=== PATIENT | male | born 1980 | race Caucasian/White ===

== ENCOUNTER 2018-02-07 18:58 | Inpatient (IN) ==
--- NOTE | 2018-02-07 19:39 | Emergency Department Note ---
Overdose HPI - General Chief Complaint: ED Overdose Stated Complaint: OD Time Seen by Provider: 02/07/18 19:08 Source: EMS Limitations: no limitations Nursing Notes Reviewed: Yes Vital Signs Reviewed: Yes - History of Present Illness HPI Narrative: Mr. Osorio, a 37yo male, presents from scene via EMS for suspected overdose of unknown substance. EMS reports decorticate position with myoclonic jerking on their arrival to scene. They administered 2 mg Narcan intranasal prior to beginning resuscitative efforts. At this time, patient began breathing but was otherwise nonresponsive to verbal commands. ROS is unobtainable secondary to patient's condition. - Related Data Allergies Allergy/AdvReac Type Severity Reaction Status Date / Time Unable to Assess Allergy Unverified 02/07/18 19:15 Review of Systems: As Per HPI Limitations: ROS unobtainable due to patients medical condition Past Medical History - Past Medical History Medical history: Reports: other - Social History Smoking Status: Current every day smoker Physical Exam Primary survey: Airway: Intact; patient spontaneous breathing with saturation 90%. Breathing: No chest wall tenderness. Bilateral breath sounds equal. Circulation: Bilateral radial, posterior tibial, pulses 2/4. No hemorrhaging. Disability: GCS 11 (E2, V4, M5). Exposure: No abrasions, lacerations, ecchymosis, or hematomas on the patient's scalp or face, trunk, extremities. Vital Signs Reviewed General: Is somnolent, eyes partly open. Head: atraumatic, normocephalic Eye: normal appearance, pupils pinpoint and equal, no scleral icterus, no conjunctival injection ENT: mucous membranes tacky, normal external ear exam Neck: normal inspection, trachea midline, full ROM Chest: normal inspection, symmetric chest rise Respiratory: Good respiratory effort. Bilateral breath sounds are clear without wheezing, crackles, or rhonchi. Cardiovascular: Regular rate and rhythm. No clicks, rubs, gallops, or murmors. Normal heart sounds. Abdomen: Abdomen flat. Bowel sounds present normoactive x-4 quadrants. Abdomen is soft, nondistended, and nontender. No organomegaly noted. Musculoskeletal: Spontaneously moving all extremities. Skin: warm, dry, intact. Extensive tattoos across his torso. Secondary survey Vital Signs Reviewed General: HEENT: No facial asymmetry. Head is normocephalic and atraumatic. Pupils pinpoint and equal. Nasal turbinates moist and pink. Oral mucosa tacky. Cardiovascular: Heart regular rate and rhythm without clicks, rubs, gallops, or murmurs. No JVD. PMI nondisplaced. Respiratory: Symmetric chest rise with good respiratory effort. Bilateral breath sounds are clear without wheezing, crackles, or rhonchi. Abdomen: Bowel sounds present normoactive x-4 quadrants. Abdomen is soft, nondistended, and nontender. No organomegaly noted. Musculoskeletal: Spontaneously moving all extremities. Full range of motion in upper and lower extremities. Neuro: Sensation light touch intact. Psych: Patient's affect is appropriate for situation. - General Limitations: no limitations General appearance: alert Course Course Narrative: Bedside glucose 107. Patient is spontaneously breathing of protecting his airway. Respirations at 10 with O2 saturation 90% on room air. He will open his eyes to loud voice and , with the addition of sternal rub, will occasionally answer simple questions. Patient does not know what he took. He does not know gave it to him. Patient believes that he has in [place]. Patient given 1 mg Narcan with no response. Patient another milligram Narcan with no response (total 2mg IV). Patient given another 2 mg Narcan with no response (total 4 mg IV). Anticipate admission. Suspect there is non-opioid component. Suspect benzodiazepines. Urine tox screen pending. Given EMSs report of myoclonic movement, patient on the ground, lack of witnesses at bedside, and patient's inability to provide story-external signs of trauma on physical exam the patient's head, will CT head to ensure no acute abnormalities. EKG dated 02/07/18 and 19:07 interpreted as sinus rhythm with a rate of 92. Intervals specifically normal QT/QTC at 329/379. Normal axis. Nonspecific ST- T changes. No previous EKG for comparison. Vital Signs Temperature 98.4 F 02/07/18 19:02 Pulse Rate 138 02/07/18 19:02 Respiratory Rate 12 02/07/18 19:02 Blood Pressure 142/96 02/07/18 19:02 O2 Sat by Pulse Oximetry 97 02/07/18 19:02 Temperature 98.4 F 02/07/18 19:02 Pulse Rate 86 02/07/18 19:40 Respiratory Rate 12 02/07/18 19:40 Blood Pressure 143/97 04/21/18 19:40 O2 Sat by Pulse Oximetry 98 02/07/18 19:44 Oxygen Delivery Oxygen Delivery Nasal Cannula Disposition Clinical Impression: Overdose Qualifiers: Encounter type: initial encounter Injury intent: undetermined intent Qualified Code(s): T50.904A - Poisoning by unspecified drugs, medicaments and biological substances, undetermined, initial encounter Disposition: Admitted As Inpatient Condition: Fair Forms: ED Satisfaction Letter
[2018-02-07] MEDS ORDERED: 0.9 % Sodium Chloride 1,000 ML IVC ONE (19:40)
--- NOTE | 2018-02-07 19:48 | Emergency Department Note ---
Disposition Clinical Impression: Overdose Qualifiers: Encounter type: initial encounter Injury intent: undetermined intent Qualified Code(s): T50.904A - Poisoning by unspecified drugs, medicaments and biological substances, undetermined, initial encounter Disposition: Admitted As Inpatient Forms: ED Satisfaction Letter General Adult HPI - General Chief complaint: ED Overdose Stated complaint: OD Time Seen by Provider: 02/07/18 19:08 Source: EMS Limitations: no limitations - History of Present Illness Pain Scale: 0 - Related Data Allergies Allergy/AdvReac Type Severity Reaction Status Date / Time Unable to Assess Allergy Unverified 02/07/18 19:15 Past Medical History - Past Medical History Medical history: Reports: other - Social History Smoking Status: Current every day smoker Physical Exam - General Limitations: no limitations General appearance: alert Course - Reevaluation(s) Reevaluation #1: Attestation note I examined this patient and my medical decision-making was reviewed with the emergency medicine resident. I agree with the documented findings, disposition and treatment plan as described except to the extent set forth below. Patient seen with emergency medicine resident Dr. Jacobo Roldan, Please see a copy of his note for details of the H&P, ED evaluation, management and disposition. I have independently evaluated the patient and confirmed appropriate portions of the history and physical exam. Briefly: 37-year-old male by EMS for overdose unresponsive. The patient was found on scene. Breathing got 2 mg of intranasal Narcan and woke up a little bit still very somnolent he received a total of 8 mg here at the [facility] emergency department he seems to have a problem with fixing gaze on his speech is limited to several words becomes somnolent but is arousable with sternal rub and loud voice. He is maintaining his airway and hemodynamically stable at this time . Unclear what substance and/or substances the patient has taken her dose for time. Patient's Accu-Chek is currently pending. Patient getting a catheter UA admission is anticipated. Providing 45 minutes critical care services this patient. EKG shows sinus rhythm without acute ischemic changes no QT prolongation. Admission disposition and ED workup in progress. Head CT pending as well Time: 19:45 Vital Signs Temperature 98.4 F 02/07/18 19:02 Pulse Rate 138 02/07/18 19:02 Respiratory Rate 12 02/07/18 19:02 Blood Pressure 142/96 02/07/18 19:02 O2 Sat by Pulse Oximetry 97 02/07/18 19:02 Temperature 98.4 F 02/07/18 19:02 Pulse Rate 86 02/07/18 19:40 Respiratory Rate 12 02/07/18 19:40 Blood Pressure 143/97 02/07/18 19:40 O2 Sat by Pulse Oximetry 98 02/07/18 19:44 Oxygen Delivery Oxygen Delivery Nasal Cannula
[2018-02-07 20:01] LABS: Bilirubin,Urine Negative (Negative); Blood,Urine Negative (Negative); Clarity,Urine Clear (Clear); Color,Urine Yellow (Yellow); Glucose,Urine (UA) Normal (Normal); Ketones,Urine Negative (Negative); Leukocyte Esterase,Urine Negative (Negative); Nitrite,Urine Negative (Negative); PH,Urine 7.5 pH Units (5.0-8.0); Protein,Urine Negative (Neg-Trace); Specific Gravity,Urine 1.014 (1.010-1.025); Urobilinogen,Urine Normal (Normal)
[2018-02-07 20:06] LABS: Basophils % 0.3 %; Eosinophils # 0.1 K/mcL (0.0-0.6); Eosinophils % 1.3 %; Hematocrit 43.6 % (37.5-50.1); Hemoglobin 15.7 g/dL (12.9-16.9); Immature Granulocytes % 0.3 % (0-4); Lymphocytes # 2.6 K/mcL (0.6-4.6); Lymphocytes % 24.8 %; Mean Corpuscular Hemoglobin 31.7 pg (28.0-33.3); Mean Corpuscular Volume 87.9 fL (83.0-100.0); Mean Platelet Volume 9.5 fL (9.4-12.4); Monocytes # 1.4 K/mcL (0.0-1.3); Monocytes % 12.9 %; Neutrophils # 6.3 K/mcL (1.6-8.9); Platelet Count 206 K/mcL (140-400); Red Blood Count 4.96 M/mcL (4.19-5.50); Red Cell Distribution Width 12.6 % (11.5-14.5); Segmented Neutrophils % 60.4 %
[2018-02-07 20:11] LABS: Amphetamine Screen,Urine Positive ng/mL (Cutoff=1000); Barbiturate Screen,Urine Negative ng/mL (Cutoff=200); Benzodiazepines Screen,Urine Negative ng/mL (Cutoff=200); Cannabinoid Screen,Urine Negative ng/mL (Cutoff = 50); Cocaine Screen,Urine Negative ng/mL (Cutoff= 300); Opiate Screen,Urine Negative ng/mL (Cutoff=300); Phencyclidine Screen,Urine Negative ng/mL (Cutoff=25)
[2018-02-07 20:30] LABS: Acetaminophen < 10 mcg/mL (10-20); Alanine Aminotransferase 73 Units/L (7-52); Albumin 4.2 g/dL (3.5-5.7); Albumin/Globulin Ratio 1.6 (1.1-2.2); Alkaline Phosphatase 59 Units/L (34-104); Aspartate Amino Transferase 140 Units/L (13-39); BUN/Creatinine Ratio 10 (6-26); Bilirubin,Direct 0.2 mg/dL (0.0-0.2); Bilirubin,Indirect 0.6 mg/dL (0.0-1.2); Bilirubin,Total 0.8 mg/dL (0.3-1.0); Blood Urea Nitrogen 10 mg/dL (6-20); Calcium 9.5 mg/dL (8.6-10.3); Carbon Dioxide 28 mEq/L (23-29); Chloride 103 mEq/L (98-107); Ethanol < 10 mg/dL (Less than 10); Globulin 2.7 g/dL (2.4-3.5); Glucose 113 mg/dL (70-105); Osmolality,Calculated 286 (280-300); Potassium 3.6 mEq/L (3.5-5.1); Salicylate < 2.5 mg/dL (15.0-30.0); Sodium 138 mEq/L (136-145); Total Protein 6.9 g/dL (6.4-8.9); eGFR For African Americans > 60 (> 60); eGFR For Non-African Americans > 60 (> 60)
[2018-02-07] MEDS ORDERED: *HR* LORazepam 2 MG/ML VIAL IVP ONE (21:12)
[2018-02-07] MEDS ORDERED: Naloxone 0.4 MG/ML INJ IVP PRN (21:49)
--- NOTE | 2018-02-07 21:53 | Internal Med History&Physical ---
Date of Encounter: 02/07/18 Time of Encounter: 21:54 Assessment and Plan (1) Toxic encephalopathy Current visit: Yes Status: Acute Presented to the emergency department 02/07/18 with encephalopathy felt secondary to drug ingestion. Suspect encephalopathy secondary to drug ingestion. Afebrile, normal white count, low concern for infectious etiology. Head CT 02/07/18 without acute findings. Received total 6 mg Narcan(2 intranasal, 4 IV) with improvement in neurologic status. Required IV Ativan prior to admission. GCS 14 at time of evaluation. Maintaining airway in no distress. Suspect encephalopathy secondary to drug ingestion. Afebrile, normal white count, low concern for infectious etiology. Narcan PRN Ativan 2 mg Q2H PRN for agitation. Continued monitoring in the ICU. PINK SLIPPED: CANNOT LEAVE AMA (2) Drug abuse Current visit: Yes Status: Acute Urine drug screen positive for amphetamines. Report is that the patient took Flakka this evening. Social service consult for drug abuse. Continue plan as outlined under encephalopathy. (3) Transaminitis Current visit: Yes Status: Acute AST 140, ALT 73. Alkaline phosphatase, bilirubin within normal limits. Hepatitis panel ordered. Repeat in AM Internal Medicine - H&P: HPI Chief complaint: Drug overdose Admitted From: Emergency Dept Plans for Post Hospital Care: Home History of present illness: Mr. Osorio is a 37 year old male with an unknown past medical history who presented to the emergency department on 02/07/18 via EMS due to concern for drug overdose. History is obtained from documentation as the patient is unable to provide a lucid description as to why he is here. As per report EMS found the patient unresponsive with myoclonic jerking. He was given 2 mg of intranasal Narcan with resolution of his apnea however he remained somnolent. Initial presentation in the emergency department showed a GCS of 11 with continued somnolence. He received an additional 4 mg of IV Narcan with a moderate response. His emergency department workup reveals a negative head CT. Labs show no acute derangements with the exception of a mild transaminitis. Urine drug screen was positive for amphetamines. There is suspicion that the patient took Flakka this evening at an unknown time. He was agitated in the emergency department receiving one-time dose of IV Ativan. Patient seen and evaluated at bedside in the emergency Department bed 5. He is alert and oriented 1 to self only. GCS 14. He is unable to provide an accurate history as to what preceded his arrival this evening. He follows commands on exam. He intermittently answers questions appropriately, unsure if this is agitation/waxing and waning/encephalopathy or malingering. When asked if he did this in an attempt to harm himself he was evasive and avoided eye contact and refused to answer the question. Given this finding the patient was pink slipped until he is more lucid to give an account as to why he overdosed. He denies ingesting or injecting any drugs this evening. She requires frequent redirection. Given his encephalopathy he is better served in the intensive care unit for close neurologic and hemodynamic monitoring at this time. Past Med Surg Social Fam HX - Past Medical History Attestation: Yes The following information was validated with the patient. Source: patient Medical history: no medical history, other - Past Surgical History Surgical History: non-contributory - Social History Smoking Status: Current every day smoker Internal Medicine - H&P: Meds 3 Allergy/AdvReac Type Severity Reaction Status Date / Time Penicillins [PCN] Allergy Hives Verified 02/07/18 22:28 ROS unobtainable: due to mental status All Systems PM: A 10-system review of systems was performed and is negative for pertinent findings except as documented above in the HPI. - Constitutional Vitals: Temp Pulse Resp BP Pulse Ox 98.4 F 80 16 151/104 99 02/07/18 19:02 02/07/18 20:38 02/07/18 20:38 02/07/18 20:38 02/07/18 20:38 General appearance: Present: A&O X 1, no acute distress, answers questions appropriately (Intermittently) - Head Head exam: Present: atraumatic, normal inspection, normocephalic - Eye Eye exam: Present: normal appearance, PERRL. Absent: conjunctival injection - ENT ENT exam: Present: mucous membranes moist, normal exam - Neck Neck exam general surgery: Present: full ROM, normal inspection - Respiratory Respiratory exam: Present: CTAB. Absent: prolonged expiratory phase, respiratory distress, wheezes, tachypnea - Cardiovascular Cardiovascular exam: Present: RRR, +S1, +S2 - GI/Abdominal GI/Abdominal exam: Present: soft. Absent: distended, tenderness - Extremities Exam Extremities exam: Present: normal inspection - Neurological Exam Additional comments: Alert and oriented 1 to self. Intermittently answers questions appropriately however he requires frequent redirection with confabulations at times. He moves all extremities equally and follows commands. GCS 14. - Psychiatric Psychiatric exam: Present: agitated, anxious - Skin Skin exam: Present: dry, intact Internal Med - H&P Results - Labs CBC & Chem 7: 02/07/18 19:57 02/07/18 19:57 Labs: Short CBC 02/07/18 Range/Units 19:57 WBC 10.5 (4.3-11.1) K/mcL Hgb 15.7 (12.9-16.9) g/dL Hct 43.6 (37.5-50.1) % Plt Count 206 (140-400) K/mcL Neutrophils # 6.3 (1.6-8.9) K/mcL BMP 02/07/18 19:57 Sodium 138 Potassium 3.6 Chloride 103 Carbon Dioxide 28 BUN 10 Creatinine 0.99 Glucose 113 H Calcium 9.5 Liver Function 02/07/18 Range/Units 19:57 Total Bilirubin 0.8 (0.3-1.0) mg/dL Direct Bilirubin 0.2 (0.0-0.2) mg/dL AST 140 H (13-39) Units/L ALT 73 H (7-52) Units/L Alkaline Phosphatase 59 (34-104) Units/L Albumin 4.2 (3.5-5.7) g/dL Urine 02/07/18 Range/Units 19:52 Urine Color Yellow (Yellow) Urine Clarity Clear (Clear) Urine pH 7.5 (5.0-8.0) pH Units Ur Specific Nixon 1.014 (1.010-1.025) Urine Protein Negative (Neg-Trace) mg/dL Urine Glucose (UA) Normal (Normal) mg/dL - EKG Data -: EKG Interpreted by Myself (Sinus rhythm, normal axis, normal intervals, no ST -T wave changes.) - Impressions ITS Impressions Head CT 02/07/18 19:40 IMPRESSION: No acute intracranial abnormality. D/ / Barrie Urrutia MD / Barrie Urrutia MD Interpreting Provider: Barrie Urrutia MD
[2018-02-07] MEDS: 0.9 % Sodium Chloride 1,000 ML IVC SCH (23:43)
[2018-02-08 01:02] LABS: Hepatitis B Surface Antigen Nonreactive (Nonreactive)
[2018-02-08] MEDS: *HR* LORazepam 2 MG/ML VIAL IVP PRN ×2 (01:33→20:44)
[2018-02-08] MEDS: 0.9 % Sodium Chloride 1,000 ML IVC SCH ×2 (08:53→17:51)
[2018-02-08 09:41] LABS: Basophils % 0.5 %; Eosinophils # 0.2 K/mcL (0.0-0.6); Eosinophils % 1.7 %; Hematocrit 44.6 % (37.5-50.1); Hemoglobin 15.1 g/dL (12.9-16.9); Immature Granulocytes % 0.2 % (0-4); Lymphocytes # 1.7 K/mcL (0.6-4.6); Lymphocytes % 19.3 %; Mean Corpuscular HGB Conc 33.9 g/dL (31.6-35.5); Mean Corpuscular Hemoglobin 30.5 pg (28.0-33.3); Mean Corpuscular Volume 90.1 fL (83.0-100.0); Mean Platelet Volume 9.4 fL (9.4-12.4); Monocytes # 1.3 K/mcL (0.0-1.3); Neutrophils # 5.6 K/mcL (1.6-8.9); Platelet Count 159 K/mcL (140-400); Red Blood Count 4.95 M/mcL (4.19-5.50); Red Cell Distribution Width 12.7 % (11.5-14.5); Segmented Neutrophils % 63.3 %
[2018-02-08 09:54] LABS: Albumin 3.9 g/dL (3.5-5.7); Albumin/Globulin Ratio 1.5 (1.1-2.2); Bilirubin,Direct 0.3 mg/dL (0.0-0.2); Bilirubin,Indirect 0.9 mg/dL (0.0-1.2); Bilirubin,Total 1.2 mg/dL (0.3-1.0); Globulin 2.6 g/dL (2.4-3.5); Total Protein 6.5 g/dL (6.4-8.9)
[2018-02-08 09:55] LABS: BUN/Creatinine Ratio 12 (6-26); Blood Urea Nitrogen 10 mg/dL (6-20); Carbon Dioxide 25 mEq/L (23-29); Chloride 107 mEq/L (98-107); Glucose 82 mg/dL (70-105); Magnesium 2.1 mg/dL (1.6-2.6); Osmolality,Calculated 286 (280-300); Potassium 4.1 mEq/L (3.5-5.1); Sodium 139 mEq/L (136-145); eGFR For African Americans > 60 (> 60); eGFR For Non-African Americans > 60 (> 60)
[2018-02-08] MEDS: Acetaminophen 325 MG TABLET PO PRN (11:08)
[2018-02-08] MEDS: cloNIDine HCl 0.1 MG TABLET PO PRN (12:39)
--- NOTE | 2018-02-08 16:30 | Internal Med Progress Note ---
Date of Encounter: 02/08/18 Time of Encounter: 08:35 - Assessment and plan (1) Toxic encephalopathy Current Visit: Yes Status: Acute Assessment and plan: Patient was brought in by EMS after being found altered and drowsy on the streets. Urine drug screen was positive for amphetamines. Patient is somewhat awake, however refuses to answer/answer appropriately, declines oral intake. Continue IV hydration, telemetry monitoring, supportive care with PRN IV Ativan; (2) Suicidal ideation Current Visit: Yes Status: Acute Assessment and plan: Patient reportedly was silent when asked about intentional drug overdose in the emergency room. Unable to assess if it is true suicidal ideation. Psychiatric consult requested. Continue one-on-one sitter for patient safety. (3) Drug abuse Current Visit: Yes Status: Acute Assessment and plan: Reports use of amphetamines. Patient also has a tracking device on his ankle, he is from [facility]. Continue when necessary IV Ativan and when necessary by mouth clonidine for tachycardia. - Time Spent With Patient Total time spent is greater than 50% in coordination of care (as documented) at patient's floor/unit and/or counseling patient: - Subjective Interval history: Refuses to answer; does not answer appropriately at this time; not in distress; no fever/chills, chest pain, dyspnea; - Constitutional Vitals: Temp Pulse Resp BP Pulse Ox 98.7 F 109 16 123/80 99 02/08/18 12:22 02/08/18 12:22 02/08/18 12:22 02/08/18 12:22 02/08/18 12:22 General appearance: Present: A&O X 1, answers questions appropriately ( Intermittently, don't know how reliable he is) - Respiratory Respiratory exam: Present: CTAB. Absent: accessory muscle use, rales, rhonchi, wheezes - Cardiovascular Cardiovascular exam: Present: RRR, +S1, +S2. Absent: diastolic murmur, gallop, rubs, systolic murmur - GI/Abdominal GI/Abdominal exam: Present: normal bowel sounds, soft, no peritoneal signs. Absent: distended, tenderness - Extremities Exam Extremities exam: Present: warm, radial pulses palpable and symmetrical. Absent : calf tenderness, cyanotic, pedal edema - Neurological Exam Neurological exam: Present: CN II-XII intact, oriented X3, no focal deficits. Absent: pronater drift, facial droop, speech deficit Internal Medicine: Result - Labs CBC & Chem 7: 02/08/18 09:23 02/08/18 09:23 Labs: Short CBC 02/08/18 Range/Units 09:23 WBC 8.8 (4.3-11.1) K/mcL Hgb 15.1 (12.9-16.9) g/dL Hct 44.6 (37.5-50.1) % Plt Count 159 (140-400) K/mcL Neutrophils # 5.6 (1.6-8.9) K/mcL BMP 02/08/18 09:23 Sodium 139 Potassium 4.1 Chloride 107 Carbon Dioxide 25 BUN 10 Creatinine 0.85 Glucose 82 Calcium 9.0 Liver Function 02/08/18 Range/Units 09:23 Total Bilirubin 1.2 H (0.3-1.0) mg/dL Direct Bilirubin 0.3 H (0.0-0.2) mg/dL AST 123 H (13-39) Units/L ALT 70 H (7-52) Units/L Alkaline Phosphatase 55 (34-104) Units/L Albumin 3.9 (3.5-5.7) g/dL Consult Discharge Plan - Plan Referrals: NONE,PCP [Primary Care Provider] -
--- NOTE | 2018-02-08 16:36 | Consult Note ---
Date of Encounter: 02/08/18 Time of Encounter: 16:30 Assessment & Recommendation (1) Overdose Current visit: Yes Status: Acute Qualifiers: Encounter type: initial encounter Injury intent: undetermined intent Qualified Code(s): T50.904A - Poisoning by unspecified drugs, medicaments and biological substances, undetermined, initial encounter (2) Toxic encephalopathy Current visit: Yes Status: Acute (3) Drug abuse Current visit: Yes Status: Acute History of Present Illness Requesting Physician: Leslie Lester MD Reason for consult: Amphetamine OD and Suicidal ideation History of present illness: Mr. Osorio is a 37 year old male, single, lives in a half way house at [place], on parole with unclear psych hx,BIBEMS to the ED due to concern for drug overdose. Psychiatry consulted for SI and Amphetamine OD Patient was seen at bedside in the presence of his one on one. He appeared sedated and was drifting in and out of sleep and complained of feeling SOB. He is unable to recall the incident leading to his hospitalization but reported he think he might have had a heart attack. He mentioned he is currently on parole and was living in a house way house. He was [facility] from [facility] 11/06 after 5years incarceration for burglary. He reported being medicated with Thorazine and lithium during his incarceration and is currently on either Prozac or Sertraline of unknown dose. Patient admitted to using Flakka before his hospitalization. Denied symptoms of depression or any intent to harm himself. He also denied AH/VH/HI MSE significant for drowsiness but linear and logical thought process Utox: Positive for Amphetamine Recommendation: Continue one to one for safety Continue to manage on the medical floor Psychiatry to follow up tomorrow before discharge Thanks for the consult CC: Leslie Lester MD Past Med Surg Social Fam HX - Past Medical History Medical history: no medical history, other - Past Psychiatric History Psychiatric history: Reports: depression, other - Past Surgical History Surgical History: non-contributory - Social History Smoking Status: Current every day smoker Smokeless Tobacco Status: No Alcohol use: none Drug use: cocaine Medications & Allergies No Known Home Drugs 02/08/18 [History] 3 Allergy/AdvReac Type Severity Reaction Status Date / Time Penicillins [PCN] Allergy Hives Verified 02/07/18 22:28 Review of Systems Constitutional: Denies: fever, chills, weakness, weight change Eyes: Denies: eye pain, vision change Ears, Nose, Throat: Denies: ear pain, throat pain, dental pain, hearing loss, congestion Cardiovascular: Denies: chest pain, palpitations, dyspnea on exertion Respiratory: Denies: cough, dyspnea, wheezes Gastrointestinal: Denies: abdominal pain, nausea, vomiting, diarrhea, constipation Genitourinary male: Denies: urgency, dysuria, frequency, genital lesions Musculoskeletal: Denies: joint swelling, joint pain Integumentary: Denies: rash, lesions, pruritus Neurological: Denies: headache, weakness, numbness, memory loss Endocrine: Denies: fatigue, heat or cold intolerance Hematologic/Lymphatic: Denies: easy bruising, lymphadenopathy Allergic/Immunologic: Denies: urticaria, itchy eyes Psychiatry Exam - Constitutional Vitals: Temp Pulse Resp BP Pulse Ox 98.7 F 109 16 123/80 99 02/08/18 12:22 02/08/18 12:22 02/08/18 12:22 02/08/18 12:22 02/08/18 12:22 General appearance: age & developmentally appropriate - Musculoskeletal Strength & Tone: other - Psychiatric Patient Orientation: Yes Person, Yes Circumstance Level of alertness: Sedated Behavior: calm, cooperative Psychomotor activity: Slowed Eye Contact: Maintains Eye Contact Mood Description: Euthymic/stable Affect description: congruent with mood Speech Volume: Normal Speech pattern: normal rate, normal rhythm, normal tone Language & Vocabulary: consistent with education Thought Process: Logical, Linear Thought Content: No Suicidal ideation, No Homicidal ideation, No Overt delusions Perceptual Disturbances: No Auditory hallucinations, No Visual hallucinations Attention Span Ability: Unable to Sustain Attention Memory Description: Grossly Intact Patient Reliability: Questionable Historian Fund of knowledge: Yes average Intelligence Estimate: Average Judgment: Poor Insight: None Results - Labs Labs: Laboratory Last Values WBC 8.8 K/mcL (4.3-11.1) 02/08/18 09:23 RBC 4.95 M/mcL (4.19-5.50) 02/08/18 09:23 Hgb 15.1 g/dL (12.9-16.9) 02/08/18 09:23 Hct 44.6 % (37.5-50.1) 02/08/18 09:23 MCV 90.1 fL (83.0-100.0) 02/08/18 09: MCH 30.5 pg (28.0-33.3) 02/08/18: MCHC 33.9 g/dL (31.6-35.5) 02/08/18 09: RDW 12.7 % (11.5-14.5) 02/08/18 09: Plt Count 159 K/mcL (140-400) 02/08/18: MPV 9.4 fL (9.4-12.4) 02/08/18 09: Immature Gran % 0.2 % (0-4) 02/08/18: Seg Neutrophils % 63.3 % 02/08/18: Lymphocytes % 19.3 % 02/08/18: Monocytes % 15.0 % 02/08/18: Eosinophils % 1.7 % 02/08/18: Basophils % 0.5 % 02/08/18: Neutrophils # 5.6 K/mcL (1.6-8.9) 02/08/18 09: Lymphocytes # 1.7 K/mcL (0.6-4.6) 02/08/18 09: Monocytes # 1.3 K/mcL (0.0-1.3) 02/08/18: Eosinophils # 0.2 K/mcL (0.0-0.6) 02/08/18: Basophils # 0.0 K/mcL (0.0-0.2) 02/08/18: Sodium 139 mEq/L (136-145) 02/08/18: Potassium 4.1 mEq/L (3.5-5.1) 02/08/18: Chloride 107 mEq/L (98-107) 02/08/18: Carbon Dioxide 25 mEq/L (23-29) 02/08/18: BUN 10 mg/dL (6-20) 02/08/18: Creatinine 0.85 mg/dL (0.70-1.30) 02/08/18 09: Est GFR ( Amer) > 60 (> 60) 02/08/18: Est GFR (Non-Af Amer) > 60 (> 60) 04/22/18 09:23 BUN/Creatinine Ratio 12 (6-26) 02/08/18 09:23 Glucose 82 mg/dL (70-105) 02/08/18 09:23 POC Glucose 104 mg/dL (70-99) H 02/07/18 22:55 Calculated Osmolality 286 (280-300) 02/08/18 09:23 Lactic Acid 1.4 mmol/L (0.5-2.2) 02/07/18 19:57 Calcium 9.0 mg/dL (8.6-10.3) 02/08/18 09:23 Magnesium 2.1 mg/dL (1.6-2.6) 02/08/18 09:23 Total Bilirubin 1.2 mg/dL (0.3-1.0) H 02/08/18 09:23 Direct Bilirubin 0.3 mg/dL (0.0-0.2) H 02/08/18 09:23 Indirect Bilirubin 0.9 mg/dL (0.0-1.2) 02/08/18 09:23 AST 123 Units/L (13-39) H 02/08/18 09:23 ALT 70 Units/L (7-52) H 02/08/18 09:23 Alkaline Phosphatase 55 Units/L (34-104) 02/08/18 09:23 Serum Total Protein 6.5 g/dL (6.4-8.9) 02/08/18 09:23 Albumin 3.9 g/dL (3.5-5.7) 02/08/18 09:23 Globulin 2.6 g/dL (2.4-3.5) 02/08/18 09:23 Albumin/Globulin Ratio 1.5 (1.1-2.2) 02/08/18 09:23 Urine Color Yellow (Yellow) 02/07/18 19:52 Urine Clarity Clear (Clear) 02/07/18 19:52 Urine pH 7.5 pH Units (5.0-8.0) 02/07/18 19:52 Ur Specific [place] 1.014 (1.010-1.025) 02/07/18 19:52 Urine Protein Negative mg/dL (Neg-Trace) 02/07/18 19:52 Urine Glucose (UA) Normal mg/dL (Normal) 02/07/18 19:52 Urine Ketones Negative mg/dL (Negative) 02/07/18 19:52 Urine Blood Negative (Negative) 02/07/18 19:52 Urine Nitrite Negative (Negative) 02/07/18 19:52 Urine Bilirubin Negative (Negative) 02/07/18 19:52 Urine Urobilinogen Normal mg/dL (Normal) 02/07/18 19:52 Ur Leukocyte Esterase Negative (Negative) 02/07/18 19:52 Salicylates < 2.5 mg/dL (15.0-30.0) L 02/07/18 19:57 Urine Opiates Screen Negative ng/mL (Adrazj=393) 02/07/18 19:52 Acetaminophen < 10 mcg/mL (10-20) L 02/07/18 19:57 Ur Barbiturates Screen Negative ng/mL (Sfqkvx=946) 02/07/18 19:52 Ur Phencyclidine Scrn Negative ng/mL (Cutoff=25) 02/07/18 19:52 Ur Amphetamines Screen Positive ng/mL (Ymeatz=4533) H 02/07/18 19:52 U Benzodiazepines Scrn Negative ng/mL (Jzaelv=585) 02/07/18 19:52 Urine Cocaine Screen Negative ng/mL (Cutoff= 300) 02/07/18 19:52 U Marijuana (THC) Screen Negative ng/mL (Cutoff = 50) 02/07/18 19:52 Ethyl Alcohol < 10 mg/dL (Less than 10) 02/07/18 19:57 Hep Bs Antigen Nonreactive (Nonreactive) 02/07/18 23:11 Consult Discharge Plan - Plan Referrals: NONE,PCP [Primary Care Provider] -
[2018-02-08] MEDS ORDERED: Nicotine 14 MG PATCH.TD24 TD SCH (22:15)
[2018-02-09] MEDS: *HR* LORazepam 2 MG/ML VIAL IVP PRN ×2 (00:01→22:37)
[2018-02-09] MEDS: Acetaminophen 325 MG TABLET PO PRN ×4 (00:01→22:33)
[2018-02-09 01:15] LABS: Hepatitis A Antibody IgM Nonreactive (Nonreactive); Hepatitis B Core IgM Nonreactive (Nonreactive)
[2018-02-09] MEDS: 0.9 % Sodium Chloride 1,000 ML IVC SCH ×3 (02:56→23:00)
[2018-02-09 04:30] LABS: Hepatitis C Virus Antibody Reactive (Nonreactive)
[2018-02-09] MEDS: Nicotine 21 MG PATCH.TD24 TD SCH ×2 (06:16→08:22)
--- NOTE | 2018-02-09 16:44 | Internal Med Progress Note ---
Date of Encounter: 02/09/18 Time of Encounter: 13:30 - Assessment and plan (1) Toxic encephalopathy Current Visit: Yes Status: Acute Assessment and plan: Encephalopathy seems to be improving, however not at baseline mental status. Unclear if patient is deliberately not providing appropriate history. Continue IV hydration, telemetry monitoring, supportive care with PRN IV Ativan ; (2) Suicidal ideation Current Visit: Yes Status: Acute Assessment and plan: Patient reportedly was silent when asked about intentional drug overdose in the emergency room. Psychiatric consult appreciated, recommended continuing one-on-one sitter for patient safety and medical management. Psychiatry to reassess today. (3) Drug abuse Current Visit: Yes Status: Acute Assessment and plan: Reports use of amphetamines. Patient also has a tracking device on his ankle, he is from [facility]. However, he reports that he is from [place], cannot provide information about how or why he is here. Continue when necessary IV Ativan, will decrease frequency as patient is noted to be dependent on this, continue when necessary by mouth clonidine for tachycardia. Consult social service coordinator. - Time Spent With Patient Total time spent is greater than 50% in coordination of care (as documented) at patient's floor/unit and/or counseling patient: - Subjective Interval history: Reports feeling depressed, inability to restore fall asleep. Reported sharp stabbing central chest pain earlier. No nausea, vomiting, shortness of breath. Patient initially did not answer appropriately. After having been told that he cannot get appropriate treatment unless he cooperates with history, he reported that he knew he was at that [facility] and he thinks is here because he had a heart attack. - Constitutional Vitals: Temp Pulse Resp BP Pulse Ox 97.3 F L 118 16 123/78 98 02/09/18 11:09 02/09/18 11:09 02/09/18 11:09 02/09/18 11:09 02/09/18 11:09 General appearance: Present: A&O X 2. Absent: answers questions appropriately - Respiratory Respiratory exam: Present: CTAB. Absent: accessory muscle use, rales, rhonchi, wheezes - Cardiovascular Cardiovascular exam: Present: RRR, +S1, +S2, tachycardia. Absent: diastolic murmur, gallop, rubs, systolic murmur - GI/Abdominal GI/Abdominal exam: Present: normal bowel sounds, soft, no peritoneal signs. Absent: distended, tenderness - Extremities Exam Extremities exam: Present: full ROM, warm, radial pulses palpable and symmetrical. Absent: calf tenderness, cyanotic, pedal edema Internal Medicine: Result - Labs CBC & Chem 7: 02/08/18 09:23 02/08/18 09:23 Labs: Cardiac Enzymes 02/09/18 Range/Units 11:35 Troponin I < 0.03 (< 0.04) ng/mL Consult Discharge Plan - Plan Referrals: NONE,PCP [Primary Care Provider] -
--- NOTE | 2018-02-09 17:08 | Electrocardiograph Report ---
[address] [place], [place] [address] Test Date: 2018-02-09 Pat Name: Julio César Osorio Department: 113 Room: 3B Gender: M Misdraw Hand: : 1980 Requested By: Maryam Lester Order Number: [id number] Reading MD: Rhonda Velásquez Measurements Intervals [place] Rate: 106 P: 68 MD: 163 QRS: 72 QRSD: 97 T: 55 QT: 321 QTc: 383 Interpretive Statements SINUS TACHYCARDIA POSSIBLE RIGHT VENTRICULAR CONDUCTION DELAY ABNORMAL RHYTHM ECG Electronically Signed On 02-09-2018 17:07:23 EDT by Rhonda Velásquez
--- NOTE | 2018-02-10 05:52 | Electrocardiograph Report ---
[address] [address] Test Date: 2018-02-07 Pat Name: Julio Césra Osorio Department: 103 Room: [facility] Gender: M Regulatory Compliance Officer: LRS : 1980 Requested By: Jacobo Roldan Order Number: [id number] Reading MD: Edmar Gutierrez Measurements Intervals [place] Rate: 92 P: 57 HI: 136 QRS: 77 QRSD: 105 T: 42 QT: 329 QTc: 379 Interpretive Statements SINUS RHYTHM Electronically Signed On 02-10-2018 5:51:11 EDT by Edmar Gutierrez
[2018-02-10] MEDS: 0.9 % Sodium Chloride 1,000 ML IVC SCH ×2 (09:11→19:55)
[2018-02-10] MEDS: Nicotine 21 MG PATCH.TD24 TD SCH (11:02)
[2018-02-10] MEDS: Acetaminophen 325 MG TABLET PO PRN ×2 (11:06→19:50)
[2018-02-10] MEDS: *HR* LORazepam 2 MG/ML VIAL IVP PRN ×2 (11:11→19:51)
--- NOTE | 2018-02-10 14:04 | Consult Note ---
Date of Encounter: 02/10/18 Time of Encounter: 12:49 Assessment & Recommendation (1) Overdose Current visit: Yes Status: Acute Assessment & Recommendation: continue one to one for safety. once not sedated will reevaluate Qualifiers: Encounter type: initial encounter Injury intent: undetermined intent Qualified Code(s): T50.904A - Poisoning by unspecified drugs, medicaments and biological substances, undetermined, initial encounter (2) Drug abuse Current visit: Yes Status: Acute History of Present Illness Patient: known to practice within the last 3 years Requesting Physician: Leslie Lester MD Reason for consult: overdose History of present illness: Mr. Osorio is a 37 year old male consulted today for amphetamine OD and suicidal ideation. he was seen by psych on 02/08/18. today following up , patient seen at bedside,he is sedated and was unable to give history , he was drifting in and out of sleep. he said he is here because he had heart attack. he was not oriented , states at [facility] , its friday and agreed to be depress , he has h/o OD in past. patient had not eaten his breakfast or lunch. will go back this AFTERNOON TO SEE IF HE IS ALERT AND ABLE TO GIVE HISTORY. MSE unable to complete secondary to drowsiness . Recmmedation. Continue sitter will follow up . Thank you for the consult CC: Leslie Lester MD Past Med Surg Social Fam HX - Past Medical History Medical history: no medical history, other - Past Psychiatric History Psychiatric history: Reports: depression, prior suicide attempt Family psychiatric history: Unknown Family History of Suicide: Unknown - Past Surgical History Surgical History: non-contributory - Social History Smoking Status: Current every day smoker Smokeless Tobacco Status: No Alcohol use: none Drug use: cocaine Medications & Allergies No Known Home Drugs 02/08/18 [History] 3 Allergy/AdvReac Type Severity Reaction Status Date / Time Penicillins [PCN] Allergy Hives Verified 02/07/18 22:28 Review of Systems Psychiatric: Reports: depression, suicidal ideation Psychiatry Exam - Constitutional Vitals: Temp Pulse Resp BP Pulse Ox 98.2 F 90 16 110/66 97 02/10/18 13:30 02/10/18 13:30 02/10/18 13:30 02/10/18 13:30 02/10/18 13:30 General appearance: age & developmentally appropriate - Psychiatric Level of alertness: Sedated Attention Span Ability: Unable to Focus, Unable to Sustain Attention Results - Labs Labs: Laboratory Last Values WBC 8.8 K/mcL (4.3-11.1) 02/08/18 09: RBC 4.95 M/mcL (4.19-5.50) 02/08/18 09:23 Hgb 15.1 g/dL (12.9-16.9) 02/08/18 09: Hct 44.6 % (37.5-50.1) 02/08/18 09: MCV 90.1 fL (83.0-100.0) 02/08/18 09: MCH 30.5 pg (28.0-33.3) 02/08/18: MCHC 33.9 g/dL (31.6-35.5) 02/08/18 09: RDW 12.7 % (11.5-14.5) 02/08/18 09: Plt Count 159 K/mcL (140-400) 02/08/18 09:23 MPV 9.4 fL (9.4-12.4) 02/08/18 09: Immature Gran % 0.2 % (0-4) 02/08/18: Seg Neutrophils % 63.3 % 02/08/18 09:23 Lymphocytes % 19.3 % 02/08/18 09:23 Monocytes % 15.0 % 02/08/18 09: Eosinophils % 1.7 % 02/08/18: Basophils % 0.5 % 02/08/18:23 Neutrophils # 5.6 K/mcL (1.6-8.9) 02/08/18 09: Lymphocytes # 1.7 K/mcL (0.6-4.6) 02/08/18: Monocytes # 1.3 K/mcL (0.0-1.3) 02/08/18 09: Eosinophils # 0.2 K/mcL (0.0-0.6) 02/08/18 09: Basophils # 0.0 K/mcL (0.0-0.2) 02/08/18 09: Sodium 139 mEq/L (136-145) 02/08/18 09:23 Potassium 4.1 mEq/L (3.5-5.1) 02/08/18 09:23 Chloride 107 mEq/L (98-107) 02/08/18 09:23 Carbon Dioxide 25 mEq/L (23-29) 02/08/18 09:23 BUN 10 mg/dL (6-20) 02/08/18 09:23 Creatinine 0.85 mg/dL (0.70-1.30) 02/08/18 09:23 Est GFR ( Amer) > 60 (> 60) 02/08/18 09:23 Est GFR (Non-Af Amer) > 60 (> 60) 02/08/18 09:23 BUN/Creatinine Ratio 12 (6-26) 02/08/18 09:23 Glucose 82 mg/dL (70-105) 02/08/18 09:23 POC Glucose 104 mg/dL (70-99) H 02/07/18 22:55 Calculated Osmolality 286 (280-300) 02/08/18 09:23 Lactic Acid 1.4 mmol/L (0.5-2.2) 02/07/18 19:57 Calcium 9.0 mg/dL (8.6-10.3) 02/08/18 09:23 Magnesium 2.1 mg/dL (1.6-2.6) 02/08/18 09:23 Total Bilirubin 1.2 mg/dL (0.3-1.0) H 02/08/18 09:23 Direct Bilirubin 0.3 mg/dL (0.0-0.2) H 02/08/18 09:23 Indirect Bilirubin 0.9 mg/dL (0.0-1.2) 02/08/18 09:23 AST 123 Units/L (13-39) H 02/08/18 09:23 ALT 70 Units/L (7-52) H 02/08/18 09:23 Alkaline Phosphatase 55 Units/L (34-104) 02/08/18 09:23 Troponin I < 0.03 ng/mL (< 0.04) 02/09/18 11:35 Serum Total Protein 6.5 g/dL (6.4-8.9) 02/08/18 09:23 Albumin 3.9 g/dL (3.5-5.7) 02/08/18 09:23 Globulin 2.6 g/dL (2.4-3.5) 02/08/18 09:23 Albumin/Globulin Ratio 1.5 (1.1-2.2) 02/08/18 09:23 Urine Color Yellow (Yellow) 02/07/18 19:52 Urine Clarity Clear (Clear) 02/07/18 19:52 Urine pH 7.5 pH Units (5.0-8.0) 02/07/18 19:52 Ur Specific [place] 1.014 (1.010-1.025) 02/07/18 19:52 Urine Protein Negative mg/dL (Neg-Trace) 02/07/18 19:52 Urine Glucose (UA) Normal mg/dL (Normal) 02/07/18 19:52 Urine Ketones Negative mg/dL (Negative) 02/07/18 19:52 Urine Blood Negative (Negative) 02/07/18 19:52 Urine Nitrite Negative (Negative) 02/07/18 19:52 Urine Bilirubin Negative (Negative) 02/07/18 19:52 Urine Urobilinogen Normal mg/dL (Normal) 02/07/18 19:52 Ur Leukocyte Esterase Negative (Negative) 02/07/18 19:52 Salicylates < 2.5 mg/dL (15.0-30.0) L 02/07/18 19:57 Urine Opiates Screen Negative ng/mL (Mdkyqt=266) 02/07/18 19:52 Acetaminophen < 10 mcg/mL (10-20) L 02/07/18 19:57 Ur Barbiturates Screen Negative ng/mL (Safgvd=031) 02/07/18 19:52 Ur Phencyclidine Scrn Negative ng/mL (Cutoff=25) 02/07/18 19:52 Ur Amphetamines Screen Positive ng/mL (Xjmszv=2703) H 02/07/18 19:52 U Benzodiazepines Scrn Negative ng/mL (Hcnwdt=682) 02/07/18 19:52 Urine Cocaine Screen Negative ng/mL (Cutoff= 300) 02/07/18 19:52 U Marijuana (THC) Screen Negative ng/mL (Cutoff = 50) 02/07/18 19:52 Ethyl Alcohol < 10 mg/dL (Less than 10) 02/07/18 19:57 Hepatitis A IgM Ab Nonreactive (Nonreactive) 02/07/18 23:11 Hep Bs Antigen Nonreactive (Nonreactive) 02/07/18 23:11 Hep B Core IgM Ab Nonreactive (Nonreactive) 02/07/18 23:11 Hepatitis C Ab Screen Reactive (Nonreactive) H 02/07/18 23:11 Consult Discharge Plan - Plan Referrals: NONE,PCP [Primary Care Provider] -
--- NOTE | 2018-02-10 14:20 | Internal Med Progress Note ---
Date of Encounter: 02/10/18 Time of Encounter: 09:35 - Assessment and plan (1) Toxic encephalopathy Current Visit: Yes Status: Acute Assessment and plan: Encephalopathy seems to have resolved, however not at baseline mental status. Pt appears to be withdrawn and reluctant to discuss his treatment or situation. Continue IV hydration, telemetry monitoring, supportive care with PRN IV Ativan ; (2) Drug abuse Current Visit: Yes Status: Acute Assessment and plan: Reports use of amphetamines. Patient also has a tracking device on his ankle, he has been residing there since being released from nursing home 2 months ago. Continue when necessary by mouth clonidine for tachycardia. Consult social worker assistant. Psychiatry also following. (3) Suicidal ideation Current Visit: Yes Status: Acute Assessment and plan: Patient slow to respond, shrugs his shoulders when asked if he is having SI. Does not respond when asked how he would harm or kill himself. Psychiatric consult appreciated, maintain sitter. Psychiatry reassessed today, unable to assess due to pt's sedation, will reassess later or tomorrow . - Time Spent With Patient Total time spent is greater than 50% in coordination of care (as documented) at patient's floor/unit and/or counseling patient: less than 15 minutes - Subjective Interval history: patient was seen and assessed at 9:35 AM. He opens his eyes briefly, answers questions appropriately and politely, at times is slow to respond. Patient states that he is upset because he is being held his [facility] longer that he was told that he would be there. He was told that he would be very weak or 2 , he has seen other people relief within a week or 2, he states that he has been there for 2 months. He states that he already has an apartment in [facility] and is ready to leave. He calls his intelligence officer in the people at his [facility] house, "Destiney". Patient reports chronic low back pain and states that no one has been helping him. I did order a Lidoderm patch. Patient did not eat breakfast, states that he did not want the practice, states that he is not hungry. He denies nausea, vomiting, diarrhea. He denies chest pain or shortness of breath. He denies headache. - Constitutional Vitals: Temp Pulse Resp BP Pulse Ox 98.2 F 90 16 110/66 97 02/10/18 13:30 04/24/18 13:30 02/10/18 13:30 02/10/18 13:30 02/10/18 13:30 General appearance: Present: cooperative, A&O X 3, pleasant, no acute distress. Absent: answers questions appropriately - Head Head exam: Present: atraumatic, normal inspection, normocephalic - Eye Eye exam: Present: normal appearance, conjuntiva pink, sclera anicteric Pupils: Present: normal accommodation - Neck Neck exam general surgery: Present: tenderness, supple, trachea midline. Absent : lymphadenopathy - Respiratory Respiratory exam: Present: CTAB. Absent: accessory muscle use, rales, respiratory distress - Cardiovascular Cardiovascular exam: Present: RRR, +S1, +S2. Absent: bradycardia, diastolic murmur, gallop, rubs, systolic murmur, tachycardia - GI/Abdominal GI/Abdominal exam: Present: normal bowel sounds, soft. Absent: distended, firm , hepatomegaly, tenderness - Extremities Exam Extremities exam: Present: normal capillary refill, normal inspection, warm, radial pulses palpable and symmetrical. Absent: calf tenderness, cyanotic, pedal edema, tenderness - Neurological Exam Neurological exam: Present: alert, oriented X3, no focal deficits. Absent: facial droop, speech deficit - Skin Skin exam: Present: dry, intact, normal color, warm. Absent: rash Internal Medicine: Result - Labs CBC & Chem 7: 02/08/18 09:23 02/08/18 09:23 Consult Discharge Plan - Plan Referrals: NONE,PCP [Primary Care Provider] -
[2018-02-10] MEDS: Ibuprofen 600 MG TABLET PO PRN ×2 (16:14→23:33)
[2018-02-11] MEDS: Acetaminophen 325 MG TABLET PO PRN ×3 (03:26→22:26)
[2018-02-11] MEDS: *HR* LORazepam 2 MG/ML VIAL IVP PRN ×2 (03:37→14:03)
[2018-02-11] MEDS: 0.9 % Sodium Chloride 1,000 ML IVC SCH ×2 (06:05→16:07)
[2018-02-11] MEDS: Nicotine 21 MG PATCH.TD24 TD SCH (09:48)
[2018-02-11] MEDS: Ibuprofen 600 MG TABLET PO PRN ×2 (09:49→19:43)
--- NOTE | 2018-02-11 13:40 | Consult Note ---
Date of Encounter: 02/11/18 Time of Encounter: 12:20 Assessment & Recommendation (1) Suicidal ideation Current visit: Yes Status: Acute Assessment & Recommendation: patient remains suicidal and homicidal needs to be closely monitored by sitter. for safety (2) Overdose Current visit: Yes Status: Acute Qualifiers: Encounter type: initial encounter Injury intent: undetermined intent Qualified Code(s): T50.904A - Poisoning by unspecified drugs, medicaments and biological substances, undetermined, initial encounter (3) Drug abuse Current visit: Yes Status: Acute (4) Bipolar 1 disorder, depressed, severe Current visit: Yes Status: Acute Assessment & Recommendation: once patient stable medically and not sedated will start medication History of Present Illness Patient: new to practice Requesting Physician: Leslie Lester MD Reason for consult: amphetamine OD and suicidal ideation. History of present illness: Mr. Osorio is a 37 year old male seen today follow up. He is able to give some info today , thru the inter view his eyes were closed, he is irritable most questions answered as i do not remember, he admits to suicidal and homicidal thoughts , does not feel safe, admits is angry and frustrated. He has been diagnosed with bipolar and has h/o psychosis , at present denies psychosis. does not know how much drugs he used and does not remember he took alcohol as his drug of choice is alcohol. he at present is danger to self/others. once medically stable needs inpatient psychiatric care. A/P h/o Bipolar affective disorder depress substance use disorder. h/o several suicidal attempts and hospitaalization. at present he is still sedated and has not been eating well, once he is stable , out of bed and able to ambulate , will need inpatient hospitalization. no medications at present as still sedated . Thank you for consult. CC: Leslie Lester MD Past Med Surg Social Fam HX - Past Medical History Medical history: no medical history, other - Past Psychiatric History Psychiatric history: Reports: bipolar, depression, prior suicide attempt, previous psychiatric hospitalization Family psychiatric history: Unknown Family History of Suicide: Unknown - Past Surgical History Surgical History: non-contributory - Social History Smoking Status: Current every day smoker Smokeless Tobacco Status: No Alcohol use: none Drug use: cocaine Medications & Allergies No Known Home Drugs 02/08/18 [History] 3 Allergy/AdvReac Type Severity Reaction Status Date / Time Penicillins [PCN] Allergy Hives Verified 02/07/18 22:28 Review of Systems Psychiatric: Reports: depression, suicidal ideation Psychiatry Exam - Constitutional Vitals: Temp Pulse Resp BP Pulse Ox 98.1 F 102 14 108/74 96 02/11/18 09:53 02/11/18 09:53 02/11/18 09:53 02/11/18 09:53 02/11/18 09:53 General appearance: average - Musculoskeletal Strength & Tone: normal for patient - Psychiatric Level of alertness: Sedated Behavior: hostile Eye Contact: No Eye Contact Mood Description: Depressed, Irritable Affect description: constricted Speech Volume: Soft/Quiet Speech pattern: coherent Thought Content: Yes Suicidal ideation, Yes Homicidal ideation Attention Span Ability: Unable to Focus, Unable to Sustain Attention Patient Reliability: Questionable Historian Intelligence Estimate: Average Judgment: Poor Insight: Minimal Results - Labs Labs: Laboratory Last Values WBC 8.8 K/mcL (4.3-11.1) 02/08/18 09:23 RBC 4.95 M/mcL (4.19-5.50) 02/08/18 09:23 Hgb 15.1 g/dL (12.9-16.9) 02/08/18 09:23 Hct 44.6 % (37.5-50.1) 02/08/18 09:23 MCV 90.1 fL (83.0-100.0) 02/08/18 09:23 MCH 30.5 pg (28.0-33.3) 02/08/18 09:23 MCHC 33.9 g/dL (31.6-35.5) 02/08/18 09:23 RDW 12.7 % (11.5-14.5) 02/08/18 09:23 Plt Count 159 K/mcL (140-400) 02/08/18 09:23 MPV 9.4 fL (9.4-12.4) 02/08/18 09:23 Immature Gran % 0.2 % (0-4) 02/08/18 09:23 Seg Neutrophils % 63.3 % 02/08/18 09:23 Lymphocytes % 19.3 % 02/08/18 09:23 Monocytes % 15.0 % 02/08/18 09:23 Eosinophils % 1.7 % 02/08/18 09:23 Basophils % 0.5 % 02/08/18 09:23 Neutrophils # 5.6 K/mcL (1.6-8.9) 02/08/18 09:23 Lymphocytes # 1.7 K/mcL (0.6-4.6) 02/08/18 09:23 Monocytes # 1.3 K/mcL (0.0-1.3) 02/08/18 09:23 Eosinophils # 0.2 K/mcL (0.0-0.6) 02/08/18 09:23 Basophils # 0.0 K/mcL (0.0-0.2) 02/08/18 09:23 Sodium 139 mEq/L (136-145) 02/08/18 09:23 Potassium 4.1 mEq/L (3.5-5.1) 02/08/18 09:23 Chloride 107 mEq/L (98-107) 02/08/18 09:23 Carbon Dioxide 25 mEq/L (23-29) 02/08/18 09:23 BUN 10 mg/dL (6-20) 02/08/18 09:23 Creatinine 0.85 mg/dL (0.70-1.30) 02/08/18 09:23 Est GFR ( Amer) > 60 (> 60) 02/08/18 09:23 Est GFR (Non-Af Amer) > 60 (> 60) 02/08/18 09:23 BUN/Creatinine Ratio 12 (6-26) 02/08/18 09:23 Glucose 82 mg/dL (70-105) 02/08/18 09:23 POC Glucose 104 mg/dL (70-99) H 02/07/18 22:55 Calculated Osmolality 286 (280-300) 02/08/18 09:23 Lactic Acid 1.4 mmol/L (0.5-2.2) 02/07/18 19:57 Calcium 9.0 mg/dL (8.6-10.3) 02/08/18 09:23 Magnesium 2.1 mg/dL (1.6-2.6) 02/08/18 09:23 Total Bilirubin 1.2 mg/dL (0.3-1.0) H 02/08/18 09:23 Direct Bilirubin 0.3 mg/dL (0.0-0.2) H 04/22/18 09:23 Indirect Bilirubin 0.9 mg/dL (0.0-1.2) 02/08/18 09:23 AST 123 Units/L (13-39) H 02/08/18 09:23 ALT 70 Units/L (7-52) H 02/08/18 09:23 Alkaline Phosphatase 55 Units/L (34-104) 02/08/18 09:23 Troponin I < 0.03 ng/mL (< 0.04) 02/09/18 11:35 Serum Total Protein 6.5 g/dL (6.4-8.9) 02/08/18 09:23 Albumin 3.9 g/dL (3.5-5.7) 02/08/18 09:23 Globulin 2.6 g/dL (2.4-3.5) 02/08/18 09:23 Albumin/Globulin Ratio 1.5 (1.1-2.2) 02/08/18 09:23 Urine Color Yellow (Yellow) 02/07/18 19:52 Urine Clarity Clear (Clear) 02/07/18 19:52 Urine pH 7.5 pH Units (5.0-8.0) 02/07/18 19:52 Ur Specific [place] 1.014 (1.010-1.025) 02/07/18 19:52 Urine Protein Negative mg/dL (Neg-Trace) 02/07/18 19:52 Urine Glucose (UA) Normal mg/dL (Normal) 02/07/18 19:52 Urine Ketones Negative mg/dL (Negative) 02/07/18 19:52 Urine Blood Negative (Negative) 02/07/18 19:52 Urine Nitrite Negative (Negative) 02/07/18 19:52 Urine Bilirubin Negative (Negative) 02/07/18 19:52 Urine Urobilinogen Normal mg/dL (Normal) 02/07/18 19:52 Ur Leukocyte Esterase Negative (Negative) 02/07/18 19:52 Salicylates < 2.5 mg/dL (15.0-30.0) L 02/07/18 19:57 Urine Opiates Screen Negative ng/mL (Qmarsr=012) 02/07/18 19:52 Acetaminophen < 10 mcg/mL (10-20) L 02/07/18 19:57 Ur Barbiturates Screen Negative ng/mL (Gadtby=781) 02/07/18 19:52 Ur Phencyclidine Scrn Negative ng/mL (Cutoff=25) 02/07/18 19:52 Ur Amphetamines Screen Positive ng/mL (Vstmrl=4233) H 02/07/18 19:52 U Benzodiazepines Scrn Negative ng/mL (Yrhcun=990) 02/07/18 19:52 Urine Cocaine Screen Negative ng/mL (Cutoff= 300) 02/07/18 19:52 U Marijuana (THC) Screen Negative ng/mL (Cutoff = 50) 02/07/18 19:52 Ethyl Alcohol < 10 mg/dL (Less than 10) 02/07/18 19:57 Hepatitis A IgM Ab Nonreactive (Nonreactive) 02/07/18 23:11 Hep Bs Antigen Nonreactive (Nonreactive) 02/07/18 23:11 Hep B Core IgM Ab Nonreactive (Nonreactive) 02/07/18 23:11 Hepatitis C Ab Screen Reactive (Nonreactive) H 02/07/18 23:11 Consult Discharge Plan - Plan Referrals: NONE,PCP [Primary Care Provider] -
[2018-02-11] MEDS: Menthol 9.1 MG LOZENGE PO PRN (16:54)
--- NOTE | 2018-02-11 17:58 | Internal Med Progress Note ---
Date of Encounter: 02/11/18 Time of Encounter: 09:30 - Assessment and plan (1) Toxic encephalopathy Current Visit: Yes Status: Resolved Assessment and plan: Resolved. Pt is back to his baseline mentation, although he is drowsy. He answers questions appropriately, though slowly at times. Continue telemetry, supportive care, IV hydration, and sitter. (2) Drug abuse Current Visit: Yes Status: Acute Assessment and plan: Reports use of amphetamines. Patient also has a tracking device on his ankle, he has been residing at a senior care house since being released from jail 2 months ago. Continue when necessary by mouth clonidine for tachycardia. Consult dialysis social worker. Psychiatry also following. (3) Suicidal ideation Current Visit: Yes Status: Acute Assessment and plan: Patient answers questions appropriately, is drowsy. Psychiatric consult appreciated, maintain sitter. They will start medication for Bipoar disorder after he is medically stable. I have decreased Ativan in an attempt to decrease drowsiness. Psychiatry reassessed today, recommend continue sitter and close monitoring for safety, as well. Sitter Ativan 0.5mg IV TID prn anxiety (4) URI (upper respiratory infection) Current Visit: Yes Status: Acute Assessment and plan: Pt reports clear rhinorreha, non-productive cough, and subjective fever/chills since last night. Lungs clear, no wheezing, rales, ronchi, no respiratory distress. Flonase Claritin 10mg po daily Respiratory panel ordered and pending Guaifenesin 600mg po BID Qualifiers: URI type: unspecified URI Qualified Code(s): J06.9 - Acute upper respiratory infection, unspecified (5) DVT prophylaxis Current Visit: Yes Status: Acute Assessment and plan: Lovenox SQ daily. Encourage pt up to chair BID and to bathroom. - Time Spent With Patient Total time spent is greater than 50% in coordination of care (as documented) at patient's floor/unit and/or counseling patient: less than 15 minutes - Subjective Interval history: patient was seen and assessed at 9:30 AM. Patient remained slightly drowsy, answers questions appropriately, is pleasant and polite. Patient reports clear rhinorrhea, nonproductive cough, reports that he had a fever, chills last night. He denies nausea, vomiting, diarrhea, abdominal pain. He denies chest pain or shortness of breath. He denies headache. - Constitutional Vitals: Temp Pulse Resp BP Pulse Ox 98.7 F 113 16 113/74 96 02/11/18 16:10 02/11/18 16:10 02/11/18 16:10 02/11/18 16:10 02/11/18 16:10 General appearance: Present: cooperative, A&O X 3, pleasant, no acute distress. Absent: answers questions appropriately - Head Head exam: Present: atraumatic, normal inspection, normocephalic - Eye Eye exam: Present: normal appearance, conjuntiva pink, sclera anicteric - Neck Neck exam general surgery: Present: supple, trachea midline. Absent: lymphadenopathy - Respiratory Respiratory exam: Present: chest wall tenderness, CTAB. Absent: accessory muscle use, rales, rhonchi, wheezes - Cardiovascular Cardiovascular exam: Present: RRR, +S1, +S2. Absent: diastolic murmur, gallop, rubs, systolic murmur - GI/Abdominal GI/Abdominal exam: Present: normal bowel sounds, soft. Absent: distended, hepatomegaly, tenderness - Extremities Exam Extremities exam: Present: warm, radial pulses palpable and symmetrical. Absent : calf tenderness, cyanotic, pedal edema - Neurological Exam Neurological exam: Present: alert, oriented X3, no focal deficits. Absent: facial droop, speech deficit - Skin Skin exam: Present: dry, intact, normal color. Absent: warm Internal Medicine: Result - Labs CBC & Chem 7: 02/08/18 09:23 02/08/18 09:23 Consult Discharge Plan - Plan Referrals: NONE,PCP [Primary Care Provider] -
[2018-02-11] MEDS: Loratadine 10 MG TABLET PO SCH (18:08)
[2018-02-11] MEDS: Fluticasone Propionate Nasal 50 MCG/SPRAY BOTTLE NS SCH (19:37)
[2018-02-11 19:55] LABS: Adenovirus Not Detected (Not Detect); Coronavirus 229E Not Detected (Not Detect); Coronavirus HKU1 Not Detected (Not Detect); Coronavirus NL63 Not Detected (Not Detect); Coronavirus OC43 Not Detected (Not Detect); Human Metapneumovirus Not Detected (Not Detect); Human Rhinovirus/Enterovirus Not Detected (Not Detect)
[2018-02-11 19:56] LABS: Bordetella Pertussis Not Detected (Not Detect); Chlamydophila pneumoniae Not Detected (Not Detect); Influenza A Subtype 2009 H1 Not Detected (Not Detect); Influenza A Untypeable Not Detected (Not Detect); Influenza B ***DETECTED*** (Not Detect); Mycoplasma pneumoniae Not Detected (Not Detect); Parainfluenza Virus 1 Not Detected (Not Detect); Parainfluenza Virus 2 Not Detected (Not Detect); Parainfluenza Virus 3 Not Detected (Not Detect); Parainfluenza Virus 4 Not Detected (Not Detect); Respiratory Syncytial Virus Not Detected (Not Detect)
[2018-02-11] MEDS: *HR* LORazepam 0.5 MG TABLET PO PRN (22:18)
[2018-02-12] MEDS: 0.9 % Sodium Chloride 1,000 ML IVC SCH ×3 (02:06→16:02)
[2018-02-12] MEDS: Ibuprofen 600 MG TABLET PO PRN ×3 (03:43→21:50)
[2018-02-12 05:51] LABS: Basophils % 0.3 %; Eosinophils # 0.2 K/mcL (0.0-0.6); Eosinophils % 1.9 %; Hemoglobin 15.3 g/dL (12.9-16.9); Immature Granulocytes % 0.3 % (0-4); Lymphocytes # 2.3 K/mcL (0.6-4.6); Mean Corpuscular Hemoglobin 30.8 pg (28.0-33.3); Mean Corpuscular Volume 90.5 fL (83.0-100.0); Mean Platelet Volume 9.7 fL (9.4-12.4); Monocytes # 1.3 K/mcL (0.0-1.3); Monocytes % 14.9 %; Neutrophils # 5.1 K/mcL (1.6-8.9); Platelet Count 147 K/mcL (140-400); Red Blood Count 4.97 M/mcL (4.19-5.50); Red Cell Distribution Width 12.6 % (11.5-14.5); Segmented Neutrophils % 56.6 %
[2018-02-12 06:11] LABS: BUN/Creatinine Ratio 6 (6-26); Blood Urea Nitrogen 5 mg/dL (6-20); Calcium 8.9 mg/dL (8.6-10.3); Carbon Dioxide 28 mEq/L (23-29); Chloride 108 mEq/L (98-107); Glucose 89 mg/dL (70-105); Osmolality,Calculated 289 (280-300); Potassium 3.9 mEq/L (3.5-5.1); Sodium 141 mEq/L (136-145); eGFR For African Americans > 60 (> 60); eGFR For Non-African Americans > 60 (> 60)
[2018-02-12] MEDS: Fluticasone Propionate Nasal 50 MCG/SPRAY BOTTLE NS SCH (08:01)
[2018-02-12] MEDS: Nicotine 21 MG PATCH.TD24 TD SCH (08:02)
[2018-02-12] MEDS: Menthol 9.1 MG LOZENGE PO PRN ×3 (08:04→21:51)
[2018-02-12] MEDS: Acetaminophen 325 MG TABLET PO PRN ×3 (08:05→23:44)
[2018-02-12] MEDS: *HR* LORazepam 0.5 MG TABLET PO PRN ×3 (08:05→21:51)
[2018-02-12] MEDS: cloNIDine HCl 0.1 MG TABLET PO PRN (08:05)
[2018-02-12] MEDS: Loratadine 10 MG TABLET PO SCH (08:05)
[2018-02-12] MEDS: *HR* Enoxaparin 40 MG/0.4 ML SYRINGE SQ SCH (08:05)
[2018-02-12] MEDS ORDERED: 0.9 % Sodium Chloride 500 ML IVC ONE ×2 (10:02→10:54)
--- NOTE | 2018-02-12 11:18 | Internal Med Progress Note ---
Date of Encounter: 02/12/18 Time of Encounter: 09:55 - Assessment and plan (1) Drug abuse Current Visit: Yes Status: Chronic Assessment and plan: Reports use of amphetamines. Pt resides in a long-term house. Continue when necessary by mouth clonidine for tachycardia. Consult social media analyst. Psychiatry also following. Pt is often drowsy when they attempt to speak with/ assess him. Will continue to follow and make recommendations when pt is alert and awake. Ativan dose has been decreased to avoid unnecessary sedation. (2) Suicidal ideation Current Visit: Yes Status: Acute Assessment and plan: Patient answers questions appropriately, is drowsy. Sitter at bedside. Ativan 0.5mg IV TID prn anxiety (3) URI (upper respiratory infection) Current Visit: Yes Status: Acute Assessment and plan: Secondary to Influenza B. Flonase Claritin 10mg po daily Respiratory panel ordered and pending Guaifenesin 600mg po BID Qualifiers: URI type: unspecified URI Qualified Code(s): J06.9 - Acute upper respiratory infection, unspecified (4) Toxic encephalopathy Current Visit: Yes Status: Resolved Assessment and plan: Resolved. (5) DVT prophylaxis Current Visit: Yes Status: Acute Assessment and plan: Lovenox SQ daily. Encourage pt up to chair BID and to bathroom with assistance. (6) Influenza B Current Visit: Yes Status: Acute Assessment and plan: Pt with clear rhinorrhea, cough, subjective fever, chills. RIP swab positive for Influenza B. Tamiflu 75mg po daily x 5 days. Plan as above for URI. Symptomatic treatment. (7) Tachycardia Current Visit: Yes Status: Acute Assessment and plan: Pt has had intermittent tachycardia throughout visit. Possibly secondary to underlying viral infection, or dehydration. I do not believe that pt is eating and drinking well. Pt has had two 500ml boluses this a.m. Clonidine 0.1mg this a.m., pulse remains around 100. No other vitals charted since after Clonidine was given. Monitor ST, rate around 100. Pt denies chest pain. Will monitor pulse after bolus this a.m. Consider echo and BB, cardiology consult if pulse unresponsive to IVF. - Time Spent With Patient Total time spent is greater than 50% in coordination of care (as documented) at patient's floor/unit and/or counseling patient: less than 15 minutes - Subjective Interval history: patient was seen and assessed at 9:55AM. Patient remained slightly drowsy again today, answers questions appropriately, is pleasant and polite. I have again encouraged pt to stay awake to speak with psychiatry today to assess for placement. He verbalized understanding and agreement. Pt is aware that he has the flu and has agreed to Tamiflu. He denies nausea, vomiting, diarrhea, abdominal pain. He denies chest pain or shortness of breath. He denies headache. - Constitutional Vitals: Temp Pulse Resp BP Pulse Ox 97.8 F 128 14 108/66 96 02/12/18 07:36 02/12/18 07:36 02/12/18 07:36 02/12/18 07:36 02/12/18 07:36 General appearance: Present: cooperative, A&O X 3, pleasant, no acute distress. Absent: answers questions appropriately - Head Head exam: Present: atraumatic, normal inspection, normocephalic - Eye Eye exam: Present: normal appearance, conjuntiva pink, sclera anicteric - Neck Neck exam general surgery: Present: supple, trachea midline. Absent: lymphadenopathy - Respiratory Respiratory exam: Present: CTAB. Absent: accessory muscle use, decreased breath sounds, rales, respiratory distress, rhonchi, wheezes - Cardiovascular Cardiovascular exam: Present: RRR, +S1, +S2. Absent: diastolic murmur, gallop, rubs, systolic murmur - GI/Abdominal GI/Abdominal exam: Present: normal bowel sounds, soft. Absent: distended, hepatomegaly, tenderness - Extremities Exam Extremities exam: Present: normal capillary refill, warm, radial pulses palpable and symmetrical. Absent: calf tenderness, cyanotic, pedal edema, tenderness - Neurological Exam Neurological exam: Present: alert, oriented X3, no focal deficits. Absent: facial droop, speech deficit - Skin Skin exam: Present: dry, intact, normal color, warm. Absent: rash Internal Medicine: Result - Labs CBC & Chem 7: 02/12/18 05:38 02/12/18 05:38 Labs: Short CBC 02/12/18 Range/Units 05:38 WBC 9.0 (4.3-11.1) K/mcL Hgb 15.3 (12.9-16.9) g/dL Hct 45.0 (37.5-50.1) % Plt Count 147 (140-400) K/mcL Neutrophils # 5.1 (1.6-8.9) K/mcL BMP 02/12/18 05:38 Sodium 141 Potassium 3.9 Chloride 108 H Carbon Dioxide 28 BUN 5 L Creatinine 0.85 Glucose 89 Calcium 8.9 Consult Discharge Plan - Plan Referrals: NONE,PCP [Primary Care Provider] -
--- NOTE | 2018-02-12 13:39 | Consult Note ---
Date of Encounter: 02/12/18 Time of Encounter: 12:40 Assessment & Recommendation (1) Suicidal ideation Current visit: Yes Status: Acute (2) Overdose Current visit: Yes Status: Acute Qualifiers: Encounter type: initial encounter Injury intent: undetermined intent Qualified Code(s): T50.904A - Poisoning by unspecified drugs, medicaments and biological substances, undetermined, initial encounter (3) Drug abuse Current visit: Yes Status: Chronic (4) Bipolar 1 disorder, depressed, severe Current visit: Yes Status: Acute History of Present Illness Requesting Physician: Leslie Lester MD Reason for consult: OVERDOSE History of present illness: Mr. Osorio is a 37 year old male was seen today for follow up , he remains suicidal and homicidal , also having some hallucination,poor eye contact and unable to sign for safety . Will need inpatient , once medically stable if we have bed can come to our unit otherwise will need placement. recommend to start risperdal 0.5 mg bid Thank you for involving in your patients care CC: Leslie Lester MD Past Med Surg Social Fam HX - Past Medical History Medical history: no medical history, other - Past Psychiatric History Psychiatric history: Reports: anxiety, depression, prior suicide attempt, previous psychiatric hospitalization Family psychiatric history: Unknown Family History of Suicide: Unknown - Past Surgical History Surgical History: non-contributory - Social History Smoking Status: Current every day smoker Smokeless Tobacco Status: No Alcohol use: none Drug use: cocaine Medications & Allergies No Known Home Drugs 02/08/18 [History] 3 Allergy/AdvReac Type Severity Reaction Status Date / Time Penicillins [PCN] Allergy Hives Verified 02/07/18 22:28 Review of Systems Psychiatric: Reports: depression, suicidal ideation Psychiatry Exam - Constitutional Vitals: Temp Pulse Resp BP Pulse Ox 98.9 F 110 14 104/62 95 02/12/18 11:30 02/12/18 11:30 02/12/18 11:29 02/12/18 11:29 02/12/18 11:29 General appearance: age & developmentally appropriate - Musculoskeletal Station: relaxed Strength & Tone: normal for patient - Psychiatric Patient Orientation: Yes Person, Yes Place Level of alertness: Alert Behavior: uncooperative Eye Contact: No Eye Contact Mood Description: Depressed, Irritable Affect description: blunted Speech Volume: Normal Speech pattern: slowed Thought Process: Slowed Thinking Thought Content: Yes Suicidal ideation, Yes Homicidal ideation Perceptual Disturbances: Yes Auditory hallucinations Attention Span Ability: Unable to Sustain Attention Memory Description: Grossly Intact Patient Reliability: Questionable Historian Fund of knowledge: Yes abstraction ability Judgment: Limited Insight: Minimal Results - Labs Labs: Laboratory Last Values WBC 9.0 K/mcL (4.3-11.1) 02/12/18 05:38 RBC 4.97 M/mcL (4.19-5.50) 02/12/18 05:38 Hgb 15.3 g/dL (12.9-16.9) 02/12/18 05:38 Hct 45.0 % (37.5-50.1) 02/12/18 05:38 MCV 90.5 fL (83.0-100.0) 02/12/18 05:38 MCH 30.8 pg (28.0-33.3) 02/12/18 05:38 MCHC 34.0 g/dL (31.6-35.5) 02/12/18 05:38 RDW 12.6 % (11.5-14.5) 02/12/18 05:38 Plt Count 147 K/mcL (140-400) 02/12/18 05:38 MPV 9.7 fL (9.4-12.4) 02/12/18 05:38 Immature Gran % 0.3 % (0-4) 02/12/18 05:38 Seg Neutrophils % 56.6 % 02/12/18 05:38 Lymphocytes % 26.0 % 02/12/18 05:38 Monocytes % 14.9 % 02/12/18 05:38 Eosinophils % 1.9 % 02/12/18 05:38 Basophils % 0.3 % 02/12/18 05:38 Neutrophils # 5.1 K/mcL (1.6-8.9) 02/12/18 05:38 Lymphocytes # 2.3 K/mcL (0.6-4.6) 02/12/18 05:38 Monocytes # 1.3 K/mcL (0.0-1.3) 02/12/18 05:38 Eosinophils # 0.2 K/mcL (0.0-0.6) 02/12/18 05:38 Basophils # 0.0 K/mcL (0.0-0.2) 02/12/18 05:38 Sodium 141 mEq/L (136-145) 02/12/18 05:38 Potassium 3.9 mEq/L (3.5-5.1) 02/12/18 05:38 Chloride 108 mEq/L (98-107) H 02/12/18 05:38 Carbon Dioxide 28 mEq/L (23-29) 02/12/18 05:38 BUN 5 mg/dL (6-20) L 02/12/18 05:38 Creatinine 0.85 mg/dL (0.70-1.30) 02/12/18 05:38 Est GFR ( Amer) > 60 (> 60) 02/12/18 05:38 Est GFR (Non-Af Amer) > 60 (> 60) 02/12/18 05:38 BUN/Creatinine Ratio 6 (6-26) 02/12/18 05:38 Glucose 89 mg/dL (70-105) 02/12/18 05:38 POC Glucose 104 mg/dL (70-99) H 02/07/18 22:55 Calculated Osmolality 289 (280-300) 02/12/18 05:38 Lactic Acid 1.4 mmol/L (0.5-2.2) 02/07/18 19:57 Calcium 8.9 mg/dL (8.6-10.3) 02/12/18 05:38 Magnesium 2.1 mg/dL (1.6-2.6) 02/08/18 09:23 Total Bilirubin 1.2 mg/dL (0.3-1.0) H 02/08/18 09:23 Direct Bilirubin 0.3 mg/dL (0.0-0.2) H 02/08/18 09:23 Indirect Bilirubin 0.9 mg/dL (0.0-1.2) 02/08/18 09:23 AST 123 Units/L (13-39) H 02/08/18 09:23 ALT 70 Units/L (7-52) H 02/08/18 09:23 Alkaline Phosphatase 55 Units/L (34-104) 02/08/18 09:23 Troponin I < 0.03 ng/mL (< 0.04) 02/09/18 11:35 Serum Total Protein 6.5 g/dL (6.4-8.9) 02/08/18 09:23 Albumin 3.9 g/dL (3.5-5.7) 02/08/18 09:23 Globulin 2.6 g/dL (2.4-3.5) 02/08/18 09:23 Albumin/Globulin Ratio 1.5 (1.1-2.2) 02/08/18 09:23 Urine Color Yellow (Yellow) 02/07/18 19:52 Urine Clarity Clear (Clear) 02/07/18 19:52 Urine pH 7.5 pH Units (5.0-8.0) 02/07/18 19:52 Ur Specific [place] 1.014 (1.010-1.025) 02/07/18 19:52 Urine Protein Negative mg/dL (Neg-Trace) 02/07/18 19:52 Urine Glucose (UA) Normal mg/dL (Normal) 02/07/18 19:52 Urine Ketones Negative mg/dL (Negative) 02/07/18 19:52 Urine Blood Negative (Negative) 02/07/18 19:52 Urine Nitrite Negative (Negative) 02/07/18 19:52 Urine Bilirubin Negative (Negative) 02/07/18 19:52 Urine Urobilinogen Normal mg/dL (Normal) 02/07/18 19:52 Ur Leukocyte Esterase Negative (Negative) 02/07/18 19:52 Salicylates < 2.5 mg/dL (15.0-30.0) L 02/07/18 19:57 Urine Opiates Screen Negative ng/mL (Vuwvxa=403) 02/07/18 19:52 Acetaminophen < 10 mcg/mL (10-20) L 02/07/18 19:57 Ur Barbiturates Screen Negative ng/mL (Uzrrkm=587) 02/07/18 19:52 Ur Phencyclidine Scrn Negative ng/mL (Cutoff=25) 02/07/18 19:52 Ur Amphetamines Screen Positive ng/mL (Rdcsrf=1657) H 02/07/18 19:52 U Benzodiazepines Scrn Negative ng/mL (Shnefk=524) 02/07/18 19:52 Urine Cocaine Screen Negative ng/mL (Cutoff= 300) 02/07/18 19:52 U Marijuana (THC) Screen Negative ng/mL (Cutoff = 50) 02/07/18 19:52 Ethyl Alcohol < 10 mg/dL (Less than 10) 04/21/18 19:57 Chlamy pneumoniae PCR Not Detected (Not Detect) 02/11/18 18:15 Adenovirus (PCR) Not Detected (Not Detect) 02/11/18 18:15 B. pertussis DNA (PCR) Not Detected (Not Detect) 02/11/18 18:15 B.parapertussis DNA PCR Not Detected (Not Detect) 02/11/18 18:15 Coronavirus OC43 (PCR) Not Detected (Not Detect) 02/11/18 18:15 Coronavirus HKU1 (PCR) Not Detected (Not Detect) 02/11/18 18:15 Coronavirus 229E (PCR) Not Detected (Not Detect) 02/11/18 18:15 Coronavirus NL63 (PCR) Not Detected (Not Detect) 02/11/18 18:15 Hepatitis A IgM Ab Nonreactive (Nonreactive) 02/07/18 23:11 Hep Bs Antigen Nonreactive (Nonreactive) 02/07/18 23:11 Hep B Core IgM Ab Nonreactive (Nonreactive) 02/07/18 23:11 Hepatitis C Ab Screen Reactive (Nonreactive) H 02/07/18 23:11 Human Metapneumovir PCR Not Detected (Not Detect) 02/11/18 18:15 Influenza A (H1) PCR Not Detected (Not Detect) 02/11/18 18:15 Influ A (H1N1/09) PCR Not Detected (Not Detect) 02/11/18 18:15 Influenza A (H3) PCR Not Detected (Not Detect) 02/11/18 18:15 Influenza A Untype (PCR) Not Detected (Not Detect) 02/11/18 18:15 Influenza Type B (PCR) DETECTED (Not Detect) A 02/11/18 18:15 M.pneumoniae DNA (PCR) Not Detected (Not Detect) 02/11/18 18:15 Parainfluenza 1 (PCR) Not Detected (Not Detect) 02/11/18 18:15 Parainfluenza 2 (PCR) Not Detected (Not Detect) 02/11/18 18:15 Parainfluenza 3 (PCR) Not Detected (Not Detect) 02/11/18 18:15 Parainfluenza 4 (PCR) Not Detected (Not Detect) 02/11/18 18:15 RSV (PCR) Not Detected (Not Detect) 02/11/18 18:15 Entero/Rhino (PCR) Not Detected (Not Detect) 02/11/18 18:15 Consult Discharge Plan - Plan Referrals: NONE,PCP [Primary Care Provider] -
[2018-02-12] MEDS ORDERED: *HR* Labetalol 20 MG/4 ML SYRINGE IVP ONE (14:49)
[2018-02-13] MEDS: Menthol 9.1 MG LOZENGE PO PRN ×4 (00:56→23:15)
[2018-02-13] MEDS: 0.9 % Sodium Chloride 1,000 ML IVC SCH ×2 (01:59→15:29)
[2018-02-13] MEDS: Ibuprofen 600 MG TABLET PO PRN ×3 (06:14→22:54)
[2018-02-13] MEDS: *HR* Enoxaparin 40 MG/0.4 ML SYRINGE SQ SCH (06:14)
[2018-02-13] MEDS: Loratadine 10 MG TABLET PO SCH (08:41)
[2018-02-13] MEDS: Acetaminophen 325 MG TABLET PO PRN ×2 (08:41→19:52)
[2018-02-13] MEDS: *HR* LORazepam 0.5 MG TABLET PO PRN ×3 (08:41→19:53)
[2018-02-13] MEDS: Fluticasone Propionate Nasal 50 MCG/SPRAY BOTTLE NS SCH (08:42)
[2018-02-13] MEDS: Nicotine 21 MG PATCH.TD24 TD SCH (08:44)
[2018-02-13] MEDS: Metoprolol XL (24 HR) Succ 25 MG TAB.ER.24H PO SCH (11:00)
[2018-02-13] MEDS: risperiDONE 0.25 MG TABLET PO SCH ×2 (11:00→19:53)
--- NOTE | 2018-02-13 15:16 | Consult Note ---
Date of Encounter: 02/13/18 Time of Encounter: 14:00 Assessment & Recommendation (1) Suicidal ideation Current visit: Yes Status: Acute (2) Overdose Current visit: Yes Status: Acute Qualifiers: Encounter type: initial encounter Injury intent: undetermined intent Qualified Code(s): T50.904A - Poisoning by unspecified drugs, medicaments and biological substances, undetermined, initial encounter (3) Drug abuse Current visit: Yes Status: Chronic (4) Bipolar 1 disorder, depressed, severe Current visit: Yes Status: Acute History of Present Illness Patient: known to practice within the last 3 years Requesting Physician: Leslie Lester MD Reason for consult: follow up History of present illness: Mr. Osorio is a 37 year old male seen today for follow. He remains angry , irritable. States i am not good at all, also been DX with Flu. at present remains suicidal and needs to be inpatient psych for further treatment. AT present as still on medical floor , he is alert now and able to take medication will start him on psychotropic medication. Please start celexa 10 mg Thank you for consult. CC: Leslie Lester MD Past Med Surg Social Fam HX - Past Medical History Medical history: no medical history, other - Past Surgical History Surgical History: non-contributory - Social History Smoking Status: Current every day smoker Smokeless Tobacco Status: No Alcohol use: none Drug use: cocaine Medications & Allergies No Known Home Drugs 02/08/18 [History] 3 Allergy/AdvReac Type Severity Reaction Status Date / Time Penicillins [PCN] Allergy Hives Verified 02/07/18 22:28 Review of Systems Psychiatric: Reports: depression, suicidal ideation Psychiatry Exam - Constitutional Vitals: Temp Pulse Resp BP Pulse Ox 98.1 F 82 16 109/70 98 02/13/18 08:46 02/13/18 08:46 02/13/18 08:46 02/13/18 08:46 02/13/18 08:46 General appearance: age & developmentally appropriate, well-groomed, well- nourished - Musculoskeletal Station: relaxed Strength & Tone: normal for patient - Psychiatric Patient Orientation: Yes Person, Yes Time, Yes Place Level of alertness: Alert Behavior: uncooperative Eye Contact: Minimal Contact Mood Description: Depressed, Anxious Thought Content: Yes Suicidal ideation Attention Span Ability: Unable to Sustain Attention Memory Description: Grossly Intact Patient Reliability: Questionable Historian Fund of knowledge: Yes abstraction ability Intelligence Estimate: Average Judgment: Limited Insight: Minimal Results - Labs Labs: Laboratory Last Values WBC 9.0 K/mcL (4.3-11.1) 02/12/18 05:38 RBC 4.97 M/mcL (4.19-5.50) 02/12/18 05:38 Hgb 15.3 g/dL (12.9-16.9) 02/12/18 05:38 Hct 45.0 % (37.5-50.1) 02/12/18 05:38 MCV 90.5 fL (83.0-100.0) 02/12/18 05:38 MCH 30.8 pg (28.0-33.3) 02/12/18 05:38 MCHC 34.0 g/dL (31.6-35.5) 02/12/18 05:38 RDW 12.6 % (11.5-14.5) 02/12/18 05:38 Plt Count 147 K/mcL (140-400) 02/12/18 05:38 MPV 9.7 fL (9.4-12.4) 02/12/18 05:38 Immature Gran % 0.3 % (0-4) 02/12/18 05:38 Seg Neutrophils % 56.6 % 02/12/18 05:38 Lymphocytes % 26.0 % 02/12/18 05:38 Monocytes % 14.9 % 02/12/18 05:38 Eosinophils % 1.9 % 02/12/18 05:38 Basophils % 0.3 % 02/12/18 05:38 Neutrophils # 5.1 K/mcL (1.6-8.9) 02/12/18 05:38 Lymphocytes # 2.3 K/mcL (0.6-4.6) 02/12/18 05:38 Monocytes # 1.3 K/mcL (0.0-1.3) 02/12/18 05:38 Eosinophils # 0.2 K/mcL (0.0-0.6) 02/12/18 05:38 Basophils # 0.0 K/mcL (0.0-0.2) 02/12/18 05:38 Sodium 141 mEq/L (136-145) 02/12/18 05:38 Potassium 3.9 mEq/L (3.5-5.1) 02/12/18 05:38 Chloride 108 mEq/L (98-107) H 02/12/18 05:38 Carbon Dioxide 28 mEq/L (23-29) 02/12/18 05:38 BUN 5 mg/dL (6-20) L 02/12/18 05:38 Creatinine 0.85 mg/dL (0.70-1.30) 02/12/18 05:38 Est GFR ( Amer) > 60 (> 60) 02/12/18 05:38 Est GFR (Non-Af Amer) > 60 (> 60) 02/12/18 05:38 BUN/Creatinine Ratio 6 (6-26) 02/12/18 05:38 Glucose 89 mg/dL (70-105) 02/12/18 05:38 POC Glucose 104 mg/dL (70-99) H 02/07/18 22:55 Calculated Osmolality 289 (280-300) 02/12/18 05:38 Lactic Acid 1.4 mmol/L (0.5-2.2) 02/07/18 19:57 Calcium 8.9 mg/dL (8.6-10.3) 02/12/18 05:38 Magnesium 2.1 mg/dL (1.6-2.6) 02/08/18 09:23 Total Bilirubin 1.2 mg/dL (0.3-1.0) H 02/08/18 09:23 Direct Bilirubin 0.3 mg/dL (0.0-0.2) H 02/08/18 09:23 Indirect Bilirubin 0.9 mg/dL (0.0-1.2) 02/08/18 09:23 AST 123 Units/L (13-39) H 02/08/18 09:23 ALT 70 Units/L (7-52) H 02/08/18 09:23 Alkaline Phosphatase 55 Units/L (34-104) 02/08/18 09:23 Troponin I < 0.03 ng/mL (< 0.04) 02/09/18 11:35 Serum Total Protein 6.5 g/dL (6.4-8.9) 02/08/18 09:23 Albumin 3.9 g/dL (3.5-5.7) 02/08/18 09:23 Globulin 2.6 g/dL (2.4-3.5) 02/08/18 09:23 Albumin/Globulin Ratio 1.5 (1.1-2.2) 02/08/18 09:23 Urine Color Yellow (Yellow) 02/07/18 19:52 Urine Clarity Clear (Clear) 02/07/18 19:52 Urine pH 7.5 pH Units (5.0-8.0) 02/07/18 19:52 Ur Specific Theresa 1.014 (1.010-1.025) 02/07/18 19:52 Urine Protein Negative mg/dL (Neg-Trace) 02/07/18 19:52 Urine Glucose (UA) Normal mg/dL (Normal) 02/07/18 19:52 Urine Ketones Negative mg/dL (Negative) 02/07/18 19:52 Urine Blood Negative (Negative) 02/07/18 19:52 Urine Nitrite Negative (Negative) 02/07/18 19:52 Urine Bilirubin Negative (Negative) 02/07/18 19:52 Urine Urobilinogen Normal mg/dL (Normal) 02/07/18 19:52 Ur Leukocyte Esterase Negative (Negative) 02/07/18 19:52 Salicylates < 2.5 mg/dL (15.0-30.0) L 02/07/18 19:57 Urine Opiates Screen Negative ng/mL (Fmqgpc=621) 02/07/18 19:52 Acetaminophen < 10 mcg/mL (10-20) L 02/07/18 19:57 Ur Barbiturates Screen Negative ng/mL (Rkgjrr=276) 02/07/18 19:52 Ur Phencyclidine Scrn Negative ng/mL (Cutoff=25) 02/07/18 19:52 Ur Amphetamines Screen Positive ng/mL (Nwzmjq=3707) H 02/07/18 19:52 U Benzodiazepines Scrn Negative ng/mL (Ockoyo=706) 02/07/18 19:52 Urine Cocaine Screen Negative ng/mL (Cutoff= 300) 02/07/18 19:52 U Marijuana (THC) Screen Negative ng/mL (Cutoff = 50) 02/07/18 19:52 Ethyl Alcohol < 10 mg/dL (Less than 10) 02/07/18 19:57 Chlamy pneumoniae PCR Not Detected (Not Detect) 02/11/18 18:15 Adenovirus (PCR) Not Detected (Not Detect) 02/11/18 18:15 B. pertussis DNA (PCR) Not Detected (Not Detect) 02/11/18 18:15 B.parapertussis DNA PCR Not Detected (Not Detect) 02/11/18 18:15 Coronavirus OC43 (PCR) Not Detected (Not Detect) 02/11/18 18:15 Coronavirus HKU1 (PCR) Not Detected (Not Detect) 02/11/18 18:15 Coronavirus 229E (PCR) Not Detected (Not Detect) 02/11/18 18:15 Coronavirus NL63 (PCR) Not Detected (Not Detect) 02/11/18 18:15 Hepatitis A IgM Ab Nonreactive (Nonreactive) 02/07/18 23:11 Hep Bs Antigen Nonreactive (Nonreactive) 02/07/18 23:11 Hep B Core IgM Ab Nonreactive (Nonreactive) 02/07/18 23:11 Hepatitis C Ab Screen Reactive (Nonreactive) H 02/07/18 23:11 Human Metapneumovir PCR Not Detected (Not Detect) 02/11/18 18:15 Influenza A (H1) PCR Not Detected (Not Detect) 02/11/18 18:15 Influ A (H1N1/09) PCR Not Detected (Not Detect) 02/11/18 18:15 Influenza A (H3) PCR Not Detected (Not Detect) 02/11/18 18:15 Influenza A Untype (PCR) Not Detected (Not Detect) 02/11/18 18:15 Influenza Type B (PCR) DETECTED (Not Detect) A 02/11/18 18:15 M.pneumoniae DNA (PCR) Not Detected (Not Detect) 02/11/18 18:15 Parainfluenza 1 (PCR) Not Detected (Not Detect) 02/11/18 18:15 Parainfluenza 2 (PCR) Not Detected (Not Detect) 02/11/18 18:15 Parainfluenza 3 (PCR) Not Detected (Not Detect) 02/11/18 18:15 Parainfluenza 4 (PCR) Not Detected (Not Detect) 02/11/18 18:15 RSV (PCR) Not Detected (Not Detect) 02/11/18 18:15 Entero/Rhino (PCR) Not Detected (Not Detect) 02/11/18 18:15 - Impressions Impressions Echocardiogram 02/12/18 14:49 Impressions: LVEF 65%. Normal LV chamber size, wall thickness and function. Mild left ventricular diastolic dysfunction. Normal right ventricular structure and function. No evidence of pulmonary hypertension. No significant valvular dysfunction. Left Ventricular Wall Motion: Rest Echo Findings All wall segments showed normal motion. Findings: Study Quality * Technically adequate exam. ECG Findings * Sinus tachycardia. Left Ventricle * LVEF 65%. * Normal LV chamber size, wall thickness and function. * Mild left ventricular diastolic dysfunction. Right Ventricle * Normal right ventricular structure and function. Left Atrium * Normal left atrial size. Right Atrium * Normal right atrial size. Aortic Valve * Trileaflet aortic valve with normal function. * No aortic regurgitation. * No aortic stenosis. Mitral Valve * Normal mitral valve structure and function. * No mitral regurgitation. * No mitral stenosis. Tricuspid Valve * Normal tricuspid valve structure and function. * Trace tricuspid regurgitation. * No evidence of pulmonary hypertension. Pulmonic Valve * Normal pulmonic valve structure and function. * Trace pulmonic regurgitation. Aorta * Normally sized aortic root. Pericardium * The pericardium appears normal. IVC * Normal IVC dimensions and inspiratory collapse. Pulmonary Artery * Normal visualized portions of the main pulmonary artery. Consult Discharge Plan - Plan Referrals: NONE,PCP [Primary Care Provider] -
--- NOTE | 2018-02-13 16:33 | Internal Med Progress Note ---
Date of Encounter: 02/13/18 Time of Encounter: 10:25 - Assessment and plan (1) Drug abuse Current Visit: Yes Status: Chronic Assessment and plan: Chronic. [facility]. Drug screen positive for amphetamines. (2) Suicidal ideation Current Visit: Yes Status: Acute Assessment and plan: Patient answers questions appropriately, is drowsy. Ativan changed to BID from TID. Pt will go to 1A when medically cleared or will be placed in outside facility. Sitter at bedside. Ativan 0.5mg po BID prn anxiety (3) URI (upper respiratory infection) Current Visit: Yes Status: Acute Qualifiers: URI type: unspecified URI Qualified Code(s): J06.9 - Acute upper respiratory infection, unspecified (4) Toxic encephalopathy Current Visit: Yes Status: Resolved (5) DVT prophylaxis Current Visit: Yes Status: Acute Assessment and plan: Lovenox subcutaneous daily. Encourage pt up to chair BID and to bathroom with assistance. (6) Influenza B Current Visit: Yes Status: Acute Assessment and plan: Positive for Influenza B with respiratory panel Tamiflu 75mg po daily x 5 days. Day 2/5 Symptomatic treatment. Continue tylenol for pain for fever, flonase, mucinex, cough drops (7) Tachycardia Current Visit: Yes Status: Acute Assessment and plan: Monitor sinus rhythm, rate less than 100. Pt denies chest pain. Pulse rate was unresponsive to IVF bolus, pt was started on BB, rate now less than 100. Echo showed EF 65%, mild LVDD, no significant valvular dysfunction. continue BB and telemetry - Time Spent With Patient Total time spent is greater than 50% in coordination of care (as documented) at patient's floor/unit and/or counseling patient: less than 15 minutes - Subjective Interval history: patient was seen and assessed at 1025 AM. Patient still slightly drowsy again today, answers questions appropriately, is pleasant and polite. He denies nausea , vomiting, diarrhea, abdominal pain. He denies chest pain or shortness of breath. He denies headache. - Constitutional Vitals: Temp Pulse Resp BP Pulse Ox 98.1 F 109 16 116/81 96 02/13/18 15:32 02/13/18 15:32 02/13/18 15:32 02/13/18 15:32 02/13/18 15:32 General appearance: Present: cooperative, A&O X 3, pleasant, no acute distress. Absent: answers questions appropriately - Head Head exam: Present: atraumatic, normocephalic - Eye Eye exam: Present: normal appearance, conjuntiva pink, sclera anicteric - Neck Neck exam general surgery: Present: supple, trachea midline. Absent: lymphadenopathy, tenderness - Respiratory Respiratory exam: Present: CTAB. Absent: accessory muscle use, chest wall tenderness, rales, respiratory distress, rhonchi, wheezes - Cardiovascular Cardiovascular exam: Present: RRR, +S1, +S2. Absent: diastolic murmur, gallop, rubs, systolic murmur - GI/Abdominal GI/Abdominal exam: Present: normal bowel sounds, soft. Absent: distended, hepatomegaly, tenderness - Extremities Exam Extremities exam: Present: normal capillary refill, normal inspection, warm, radial pulses palpable and symmetrical. Absent: calf tenderness, cyanotic, pedal edema, tenderness - Neurological Exam Neurological exam: Present: alert, oriented X3, no focal deficits. Absent: altered, facial droop, speech deficit - Skin Skin exam: Present: dry, intact, normal color, warm. Absent: rash Internal Medicine: Result - Labs CBC & Chem 7: 02/12/18 05:38 02/12/18 05:38 - Impressions Impressions Echocardiogram 02/12/18 14:49 Impressions: LVEF 65%. Normal LV chamber size, wall thickness and function. Mild left ventricular diastolic dysfunction. Normal right ventricular structure and function. No evidence of pulmonary hypertension. No significant valvular dysfunction. Left Ventricular Wall Motion: Rest Echo Findings All wall segments showed normal motion. Findings: Study Quality * Technically adequate exam. ECG Findings * Sinus tachycardia. Left Ventricle * LVEF 65%. * Normal LV chamber size, wall thickness and function. * Mild left ventricular diastolic dysfunction. Right Ventricle * Normal right ventricular structure and function. Left Atrium * Normal left atrial size. Right Atrium * Normal right atrial size. Aortic Valve * Trileaflet aortic valve with normal function. * No aortic regurgitation. * No aortic stenosis. Mitral Valve * Normal mitral valve structure and function. * No mitral regurgitation. * No mitral stenosis. Tricuspid Valve * Normal tricuspid valve structure and function. * Trace tricuspid regurgitation. * No evidence of pulmonary hypertension. Pulmonic Valve * Normal pulmonic valve structure and function. * Trace pulmonic regurgitation. Aorta * Normally sized aortic root. Pericardium * The pericardium appears normal. IVC * Normal IVC dimensions and inspiratory collapse. Pulmonary Artery * Normal visualized portions of the main pulmonary artery. Consult Discharge Plan - Plan Referrals: NONE,PCP [Primary Care Provider] -
[2018-02-14] MEDS: 0.9 % Sodium Chloride 1,000 ML IVC SCH (03:48)
[2018-02-14] MEDS: *HR* Enoxaparin 40 MG/0.4 ML SYRINGE SQ SCH (06:28)
[2018-02-14] MEDS: Ibuprofen 600 MG TABLET PO PRN (06:29)
[2018-02-14] MEDS: Menthol 9.1 MG LOZENGE PO PRN (06:31)
[2018-02-14] MEDS: Metoprolol XL (24 HR) Succ 25 MG TAB.ER.24H PO SCH (08:40)
[2018-02-14] MEDS: Nicotine 21 MG PATCH.TD24 TD SCH (08:48)
[2018-02-14] MEDS: risperiDONE 0.25 MG TABLET PO SCH ×2 (08:50→20:34)
[2018-02-14] MEDS: Loratadine 10 MG TABLET PO SCH (08:50)
[2018-02-14] MEDS: Fluticasone Propionate Nasal 50 MCG/SPRAY BOTTLE NS SCH (08:51)
--- NOTE | 2018-02-14 13:28 | Internal Med Progress Note ---
Date of Encounter: 02/14/18 Time of Encounter: 08:55 - Assessment and plan (1) Drug abuse Current Visit: Yes Status: Chronic Assessment and plan: Chronic. (2) Suicidal ideation Current Visit: Yes Status: Acute Assessment and plan: Patient answers questions appropriately. Ativan changed to BID from TID and pt is more alert and interactive today than he has been througout the visit. Pt will go to 1A when medically cleared or will be placed in outside facility. Sitter at bedside. Ativan 0.5mg po BID prn anxiety (3) URI (upper respiratory infection) Current Visit: Yes Status: Acute Assessment and plan: Secondary to Influenza B. Flonase Claritin 10mg po daily Guaifenesin 600mg po BID Qualifiers: URI type: unspecified URI Qualified Code(s): J06.9 - Acute upper respiratory infection, unspecified (4) DVT prophylaxis Current Visit: Yes Status: Acute Assessment and plan: Lovenox SQ daily. Encourage pt to ambulate. (5) Influenza B Current Visit: Yes Status: Acute Assessment and plan: Pt continues to reports URI symptoms and mild myalgias. Tamiflu 75mg po daily x 5 days. Day 3/5 Symptomatic treatment. Continue tylenol for pain for fever, flonase, mucinex, cough drops (6) Tachycardia Current Visit: Yes Status: Acute Assessment and plan: Monitor sinus rhythm, rate 100. Pt denies chest pain, palpitations or SOB. Pulse rate variable, in high 90s and over 100. Echo showed EF 65%, mild LVDD, no significant valvular dysfunction. Toprol increased to 25mg po daily, continue telemetry (7) Toxic encephalopathy Current Visit: Yes Status: Resolved - Time Spent With Patient Total time spent is greater than 50% in coordination of care (as documented) at patient's floor/unit and/or counseling patient: less than 15 minutes - Subjective Interval history: patient was seen and assessed at 0855 AM. Patient alert, awake, pleasant, answers questions appropriately. Female family member at bedside. Pt states that he is not thrilled with the hospital food and family requests to bring him [employer]. He has not been eating well, states that he does not have an appetite and would like [employer]. He denies nausea, vomiting, diarrhea, abdominal pain. He denies chest pain or shortness of breath. He denies headache. - Constitutional Vitals: Temp Pulse Resp BP Pulse Ox 97.6 F 107 20 116/76 95 02/14/18 11:07 02/14/18 11:07 02/14/18 11:07 02/14/18 11:07 02/14/18 11:07 General appearance: Present: cooperative, A&O X 3, pleasant, no acute distress. Absent: answers questions appropriately - Head Head exam: Present: atraumatic, normal inspection, normocephalic - Eye Eye exam: Present: normal appearance, conjuntiva pink, sclera anicteric - Neck Neck exam general surgery: Present: supple, trachea midline. Absent: lymphadenopathy - Respiratory Respiratory exam: Present: decreased breath sounds, CTAB. Absent: accessory muscle use, rales, respiratory distress, rhonchi, wheezes Additional comments: Poor inspiratory effort. - Cardiovascular Cardiovascular exam: Present: RRR, +S1, +S2. Absent: diastolic murmur, gallop, rubs, systolic murmur - GI/Abdominal GI/Abdominal exam: Present: normal bowel sounds, soft, no peritoneal signs. Absent: distended, hepatomegaly, tenderness - Extremities Exam Extremities exam: Present: normal capillary refill, normal inspection, warm, radial pulses palpable and symmetrical. Absent: calf tenderness, cyanotic, pedal edema - Neurological Exam Neurological exam: Present: alert, oriented X3, no focal deficits. Absent: facial droop, speech deficit - Skin Skin exam: Present: dry, intact, normal color, warm. Absent: rash Internal Medicine: Result - Labs CBC & Chem 7: 02/12/18 05:38 02/12/18 05:38 Consult Discharge Plan - Plan Referrals: NONE,PCP [Primary Care Provider] -
[2018-02-14] MEDS: *HR* LORazepam 0.5 MG TABLET PO PRN (18:56)
[2018-02-14] MEDS: Acetaminophen 325 MG TABLET PO PRN (20:34)
[2018-02-14 21:19] LABS: Acinetobacter baumannii by PCR Not Detected (Not Detect); Candida albicans by PCR Not Detected (Not Detect); Candida glabrata by PCR Not Detected (Not Detect); Candida krusei by PCR Not Detected (Not Detect); Candida parapsilosis by PCR Not Detected (Not Detect); Candida tropicalis by PCR Not Detected (Not Detect); Enterococcus by PCR Not Detected (Not Detect); Escherichia coli by PCR Not Detected (Not Detect); Klebsiella oxytoca by PCR Not Detected (Not Detect); Klebsiella pneumoniae by PCR Not Detected (Not Detect); Pseudomonas aeruginosa by PCR Not Detected (Not Detect); Serratia marcescens by PCR Not Detected (Not Detect); Staphylococcus aureus by PCR Not Detected (Not Detect); Streptococcus agalactiae(B)PCR Not Detected (Not Detect); Streptococcus by PCR Not Detected (Not Detect); Streptococcus pneumoniae PCR Not Detected (Not Detect); Streptococcus pyogenes (A) PCR Not Detected (Not Detect); blaKPC Carbapenem-Resist Gene Not Detected (Not Detect); mecA Methicillin-Resist Gene Not Detected (Not Detect); vanA/B Vancomycin-Resist Genes Not Detected (Not Detect)
[2018-02-14] MEDS: Clindamycin 900 MG/50 ML 900 MG/50 ML IV.SOLN IVPB SCH (21:56)
[2018-02-15] MEDS ORDERED: Clindamycin 900 MG/50 ML 900 MG/50 ML IV.SOLN IVPB SCH
[2018-02-15] MEDS: Acetaminophen 325 MG TABLET PO PRN (03:40)
[2018-02-15] MEDS: Clindamycin 900 MG/50 ML 900 MG/50 ML IV.SOLN IVPB SCH (05:02)
[2018-02-15] MEDS: *HR* Enoxaparin 40 MG/0.4 ML SYRINGE SQ SCH (07:37)
[2018-02-15] MEDS: Ibuprofen 600 MG TABLET PO PRN ×2 (07:37→19:50)
[2018-02-15] MEDS: Loratadine 10 MG TABLET PO SCH (07:38)
[2018-02-15] MEDS: risperiDONE 0.25 MG TABLET PO SCH (07:39)
[2018-02-15] MEDS: Nicotine 21 MG PATCH.TD24 TD SCH (07:39)
[2018-02-15] MEDS: 0.9 % Sodium Chloride 1,000 ML IVC SCH ×2 (07:40→22:20)
[2018-02-15] MEDS: Fluticasone Propionate Nasal 50 MCG/SPRAY BOTTLE NS SCH (07:40)
[2018-02-15] MEDS: *HR* LORazepam 0.5 MG TABLET PO PRN ×2 (07:52→20:13)
[2018-02-15] MEDS ORDERED: Metoprolol XL (24 HR) Succ 25 MG TAB.ER.24H PO SCH (09:00)
[2018-02-15] MEDS ORDERED: Metoprolol XL (24 HR) Succ 25 MG TAB.ER.24H PO ONE (09:15)
[2018-02-15 11:47] LABS: Basophils % 0.2 %; Eosinophils # 0.3 K/mcL (0.0-0.6); Eosinophils % 3.2 %; Hematocrit 37.2 % (37.5-50.1); Immature Granulocytes % 0.3 % (0-4); Immature Platelets 2.1 % (1.1-6.1); Lymphocytes # 2.9 K/mcL (0.6-4.6); Mean Corpuscular HGB Conc 34.1 g/dL (31.6-35.5); Mean Corpuscular Hemoglobin 30.8 pg (28.0-33.3); Mean Corpuscular Volume 90.3 fL (83.0-100.0); Mean Platelet Volume 9.2 fL (9.4-12.4); Monocytes % 11.4 %; Neutrophils # 4.5 K/mcL (1.6-8.9); Platelet Count 213 K/mcL (140-400); Red Blood Count 4.12 M/mcL (4.19-5.50); Red Cell Distribution Width 12.3 % (11.5-14.5); Segmented Neutrophils % 51.9 %
[2018-02-15 11:50] LABS: Hemoglobin 12.7 g/dL (12.9-16.9)
--- NOTE | 2018-02-15 15:00 | Consult Note ---
Date of Encounter: 02/15/18 Time of Encounter: 14:00 Assessment & Recommendation (1) Suicidal ideation Current visit: Yes Status: Acute (2) Overdose Current visit: Yes Status: Acute Qualifiers: Encounter type: initial encounter Injury intent: undetermined intent Qualified Code(s): T50.904A - Poisoning by unspecified drugs, medicaments and biological substances, undetermined, initial encounter (3) Drug abuse Current visit: Yes Status: Chronic (4) Bipolar 1 disorder, depressed, severe Current visit: Yes Status: Acute History of Present Illness Patient: known to practice within the last 3 years Requesting Physician: Leslie Lester MD Reason for consult: follow up History of present illness: Mr. Osorio is a 37 year old male was seen today for follow up , he was more verbal today states he is still very depress , and now they found staph, he is been treated for FLU. hE IS ANXIOUS , DEPRESS, HOPELESS AND HAVING PARANOIA AND AUD. HALLUCINATION , NOT COMMANDING. HE IS DENYING sUICIDAL IDEATION AT PRESENT BUT IS VERY DEPRESSED , NO EYE CONTACT , HOPELESS. Rec please increase risperdal to 1 mg po bid increase Citalopram to 20 mg po am CC: Leslie Lester MD Past Med Surg Social Fam HX - Past Medical History Medical history: no medical history, other - Past Surgical History Surgical History: non-contributory - Social History Smoking Status: Current every day smoker Smokeless Tobacco Status: No Alcohol use: none Drug use: cocaine Medications & Allergies No Known Home Drugs 02/08/18 [History] 3 Allergy/AdvReac Type Severity Reaction Status Date / Time Penicillins [PCN] Allergy Hives Verified 02/07/18 22:28 Review of Systems Psychiatric: Reports: depression, suicidal ideation Psychiatry Exam - Constitutional Vitals: Temp Pulse Resp BP Pulse Ox 98 F 85 14 103/66 94 02/15/18 12:03 02/15/18 12:03 02/15/18 12:03 02/15/18 12:03 02/15/18 12:03 General appearance: age & developmentally appropriate, well-groomed, well- nourished - Musculoskeletal Station: relaxed Strength & Tone: normal for patient - Psychiatric Patient Orientation: Yes Person, Yes Time, Yes Place Level of alertness: Alert Behavior: withdrawn Psychomotor activity: Slowed Eye Contact: Avoids Eye Contact Mood Description: Depressed, Anxious Affect description: congruent with mood Speech Volume: Soft/Quiet Speech pattern: normal rate, normal rhythm, normal tone, fluent, spontaneous Language & Vocabulary: consistent with education Thought Process: Slowed Thinking Thought Content: Yes Paranoid delusion Perceptual Disturbances: Yes Auditory hallucinations Attention Span Ability: Unable to Sustain Attention Memory Description: Grossly Intact Patient Reliability: Reliable Historian Fund of knowledge: Yes abstraction ability, Yes aware of current events Intelligence Estimate: Average Judgment: Limited Insight: Minimal Results - Labs Labs: Laboratory Last Values WBC 8.7 K/mcL (4.3-11.1) 02/15/18 11:37 RBC 4.12 M/mcL (4.19-5.50) L 02/15/18 11:37 Hgb 12.7 g/dL (12.9-16.9) L D 02/15/18 11:37 Hct 37.2 % (37.5-50.1) L 02/15/18 11:37 MCV 90.3 fL (83.0-100.0) 02/15/18 11:37 MCH 30.8 pg (28.0-33.3) 02/15/18 11:37 MCHC 34.1 g/dL (31.6-35.5) 02/15/18 11:37 RDW 12.3 % (11.5-14.5) 02/15/18 11:37 Plt Count 213 K/mcL (140-400) 02/15/18 11:37 MPV 9.2 fL (9.4-12.4) L 02/15/18 11:37 Immature Gran % 0.3 % (0-4) 02/15/18 11:37 Seg Neutrophils % 51.9 % 02/15/18 11:37 Lymphocytes % 33.0 % 02/15/18 11:37 Monocytes % 11.4 % 02/15/18 11:37 Eosinophils % 3.2 % 02/15/18 11:37 Basophils % 0.2 % 02/15/18 11:37 Neutrophils # 4.5 K/mcL (1.6-8.9) 02/15/18 11:37 Lymphocytes # 2.9 K/mcL (0.6-4.6) 02/15/18 11:37 Monocytes # 1.0 K/mcL (0.0-1.3) 02/15/18 11:37 Eosinophils # 0.3 K/mcL (0.0-0.6) 02/15/18 11:37 Basophils # 0.0 K/mcL (0.0-0.2) 02/15/18 11:37 Immature Plt Fraction 2.1 % (1.1-6.1) 02/15/18 11:37 Sodium 141 mEq/L (136-145) 02/12/18 05:38 Potassium 3.9 mEq/L (3.5-5.1) 02/12/18 05:38 Chloride 108 mEq/L (98-107) H 02/12/18 05:38 Carbon Dioxide 28 mEq/L (23-29) 02/12/18 05:38 BUN 5 mg/dL (6-20) L 02/12/18 05:38 Creatinine 0.85 mg/dL (0.70-1.30) 02/12/18 05:38 Est GFR ( Amer) > 60 (> 60) 02/12/18 05:38 Est GFR (Non-Af Amer) > 60 (> 60) 02/12/18 05:38 BUN/Creatinine Ratio 6 (6-26) 02/12/18 05:38 Glucose 89 mg/dL (70-105) 02/12/18 05:38 POC Glucose 104 mg/dL (70-99) H 02/07/18 22:55 Calculated Osmolality 289 (280-300) 02/12/18 05:38 Lactic Acid 1.4 mmol/L (0.5-2.2) 02/07/18 19:57 Calcium 8.9 mg/dL (8.6-10.3) 02/12/18 05:38 Magnesium 2.1 mg/dL (1.6-2.6) 02/08/18 09:23 Total Bilirubin 1.2 mg/dL (0.3-1.0) H 02/08/18 09:23 Direct Bilirubin 0.3 mg/dL (0.0-0.2) H 02/08/18 09:23 Indirect Bilirubin 0.9 mg/dL (0.0-1.2) 02/08/18 09:23 AST 123 Units/L (13-39) H 02/08/18 09:23 ALT 70 Units/L (7-52) H 02/08/18 09:23 Alkaline Phosphatase 55 Units/L (34-104) 02/08/18 09:23 Troponin I < 0.03 ng/mL (< 0.04) 02/09/18 11:35 Serum Total Protein 6.5 g/dL (6.4-8.9) 02/08/18 09:23 Albumin 3.9 g/dL (3.5-5.7) 02/08/18 09:23 Globulin 2.6 g/dL (2.4-3.5) 02/08/18 09:23 Albumin/Globulin Ratio 1.5 (1.1-2.2) 02/08/18 09:23 Urine Color Yellow (Yellow) 02/07/18 19:52 Urine Clarity Clear (Clear) 02/07/18 19:52 Urine pH 7.5 pH Units (5.0-8.0) 02/07/18 19:52 Ur Specific [place] 1.014 (1.010-1.025) 02/07/18 19:52 Urine Protein Negative mg/dL (Neg-Trace) 02/07/18 19:52 Urine Glucose (UA) Normal mg/dL (Normal) 02/07/18 19:52 Urine Ketones Negative mg/dL (Negative) 02/07/18 19:52 Urine Blood Negative (Negative) 02/07/18 19:52 Urine Nitrite Negative (Negative) 02/07/18 19:52 Urine Bilirubin Negative (Negative) 02/07/18 19:52 Urine Urobilinogen Normal mg/dL (Normal) 02/07/18 19:52 Ur Leukocyte Esterase Negative (Negative) 02/07/18 19:52 Salicylates < 2.5 mg/dL (15.0-30.0) L 02/07/18 19:57 Urine Opiates Screen Negative ng/mL (Qaqrzu=755) 02/07/18 19:52 Acetaminophen < 10 mcg/mL (10-20) L 02/07/18 19:57 Ur Barbiturates Screen Negative ng/mL (Ibzpsc=085) 02/07/18 19:52 Ur Phencyclidine Scrn Negative ng/mL (Cutoff=25) 02/07/18 19:52 Ur Amphetamines Screen Positive ng/mL (Sgbpso=9874) H 02/07/18 19:52 U Benzodiazepines Scrn Negative ng/mL (Zgyxfu=094) 02/07/18 19:52 Urine Cocaine Screen Negative ng/mL (Cutoff= 300) 02/07/18 19:52 U Marijuana (THC) Screen Negative ng/mL (Cutoff = 50) 02/07/18 19:52 Ethyl Alcohol < 10 mg/dL (Less than 10) 02/07/18 19:57 A. baumannii (PCR) Not Detected (Not Detect) 02/13/18 22:45 Chlamy pneumoniae PCR Not Detected (Not Detect) 02/11/18 18:15 Adenovirus (PCR) Not Detected (Not Detect) 02/11/18 18:15 B. pertussis DNA (PCR) Not Detected (Not Detect) 02/11/18 18:15 B.parapertussis DNA PCR Not Detected (Not Detect) 02/11/18 18:15 Vera albicans (PCR) Not Detected (Not Detect) 02/13/18 22:45 C. glabrata (PCR) Not Detected (Not Detect) 02/13/18 22:45 C. krusei (PCR) Not Detected (Not Detect) 02/13/18 22:45 C. parapsilosis (PCR) Not Detected (Not Detect) 02/13/18 22:45 C. tropicalis (PCR) Not Detected (Not Detect) 02/13/18 22:45 Coronavirus OC43 (PCR) Not Detected (Not Detect) 02/11/18 18:15 Coronavirus HKU1 (PCR) Not Detected (Not Detect) 02/11/18 18:15 Coronavirus 229E (PCR) Not Detected (Not Detect) 02/11/18 18:15 Coronavirus NL63 (PCR) Not Detected (Not Detect) 02/11/18 18:15 Enterobacteriac sp PCR Not Detected (Not Detect) 02/13/18 22:45 E. cloacae complex PCR Not Detected (Not Detect) 02/13/18 22:45 Enterococcus sp PCR Not Detected (Not Detect) 02/13/18 22:45 E. coli (PCR) Not Detected (Not Detect) 02/13/18 22:45 H. influenzae (PCR) Not Detected (Not Detect) 02/13/18 22:45 Hepatitis A IgM Ab Nonreactive (Nonreactive) 02/07/18 23:11 Hep Bs Antigen Nonreactive (Nonreactive) 02/07/18 23:11 Hep B Core IgM Ab Nonreactive (Nonreactive) 02/07/18 23:11 Hepatitis C Ab Screen Reactive (Nonreactive) H 02/07/18 23:11 Human Metapneumovir PCR Not Detected (Not Detect) 02/11/18 18:15 Influenza A (H1) PCR Not Detected (Not Detect) 02/11/18 18:15 Influ A (H1N1/09) PCR Not Detected (Not Detect) 02/11/18 18:15 Influenza A (H3) PCR Not Detected (Not Detect) 02/11/18 18:15 Influenza A Untype (PCR) Not Detected (Not Detect) 02/11/18 18:15 Influenza Type B (PCR) DETECTED (Not Detect) A 02/11/18 18:15 Klebsiella oxytoca PCR Not Detected (Not Detect) 02/13/18 22:45 Klebsiella pneumoniae Not Detected (Not Detect) 02/13/18 22:45 List. monocytogenes PCR Not Detected (Not Detect) 02/13/18 22:45 M.pneumoniae DNA (PCR) Not Detected (Not Detect) 02/11/18 18:15 N. meningitidis (PCR) Not Detected (Not Detect) 02/13/18 22:45 Parainfluenza 1 (PCR) Not Detected (Not Detect) 02/11/18 18:15 Parainfluenza 2 (PCR) Not Detected (Not Detect) 02/11/18 18:15 Parainfluenza 3 (PCR) Not Detected (Not Detect) 02/11/18 18:15 Parainfluenza 4 (PCR) Not Detected (Not Detect) 02/11/18 18:15 Proteus species (PCR) Not Detected (Not Detect) 02/13/18 22:45 RSV (PCR) Not Detected (Not Detect) 02/11/18 18:15 Entero/Rhino (PCR) Not Detected (Not Detect) 02/11/18 18:15 Serratia marcescens PCR Not Detected (Not Detect) 02/13/18 22:45 Staphylococcus sp PCR DETECTED (Not Detect) A 02/13/18 22:45 Staph aureus (PCR) Not Detected (Not Detect) 02/13/18 22:45 mecA-Methicil Res Gene Not Detected (Not Detect) 02/13/18 22:45 Streptococcus sp PCR Not Detected (Not Detect) 02/13/18 22:45 Group A Strep DNA Not Detected (Not Detect) 02/13/18 22:45 Group B Strep (PCR) Not Detected (Not Detect) 02/13/18 22:45 Strep pneumoniae (PCR) Not Detected (Not Detect) 02/13/18 22:45 P. aeruginosa (PCR) Not Detected (Not Detect) 02/13/18 22:45 Obie/B-Vanco Res Genes Not Detected (Not Detect) 02/13/18 22:45 KPC (blaKPC) Detect PCR Not Detected (Not Detect) 02/13/18 22:45 Consult Discharge Plan - Plan Referrals: NONE,PCP [Primary Care Provider] -
--- NOTE | 2018-02-15 15:35 | Internal Med Progress Note ---
Date of Encounter: 02/15/18 Time of Encounter: 10:45 - Assessment and plan (1) Drug abuse Current Visit: Yes Status: Chronic Assessment and plan: Chronic. Continue to monitor for safety and signs of withdrawal. (2) Suicidal ideation Current Visit: Yes Status: Acute Assessment and plan: Patient very flat, good eye contact. Ativan changed to BID from TID. Pt still remains drowsy in the mornings, is more alert in the afternoons. Pt will go to [facility] when medically cleared or will be placed in outside facility. Sitter at bedside. (3) URI (upper respiratory infection) Current Visit: Yes Status: Acute Assessment and plan: Secondary to Influenza B. Flonase Claritin 10mg po daily Guaifenesin 600mg po BID Cough drops. Qualifiers: URI type: unspecified URI Qualified Code(s): J06.9 - Acute upper respiratory infection, unspecified (4) DVT prophylaxis Current Visit: Yes Status: Acute Assessment and plan: Lovenox SQ daily. PT has been ambulatory to and from bathroom. (5) Influenza B Current Visit: Yes Status: Acute Assessment and plan: Pt continues to reports URI symptoms and mild myalgias. Tamiflu 75mg po daily x 5 days. Day 4/5 Symptomatic treatment. Continue tylenol for pain for fever, flonase, mucinex, cough drops Plan as above. (6) Tachycardia Current Visit: Yes Status: Acute Assessment and plan: Monitor sinus tachycardia. Pt denies chest pain, palpitations or SOB. Pulse rate variable, in high 90s and over 100. Echo showed EF 65%, mild LVDD, no significant valvular dysfunction. Toprol increased to 50mg po daily, continue telemetry (7) Toxic encephalopathy Current Visit: Yes Status: Resolved (8) Blood bacterial culture positive Current Visit: Yes Status: Acute Assessment and plan: Blood culture positive for Staphylococcus spescies, not S. aureus. Likely normal anahi since only one is positive. Will treat empirically. Pt has been tachycardic, afebrile, normotensive. Echo as above. Will wait on final culture and sensitivity and narrow or discontinue antibiotics. - Time Spent With Patient Total time spent is greater than 50% in coordination of care (as documented) at patient's floor/unit and/or counseling patient: less than 15 minutes - Subjective Interval history: patient was seen and assessed at 1045 AM. Patient alert, awake, pleasant, answers questions appropriately. PT with flat affect, does make good eye contact and smiles today, he still remains very drowsy. He denies nausea, vomiting, diarrhea, abdominal pain. He denies chest pain or shortness of breath. He denies headache. - Constitutional Vitals: Temp Pulse Resp BP Pulse Ox 98 F 85 14 103/66 94 02/15/18 12:03 02/15/18 12:03 02/15/18 12:03 02/15/18 12:03 02/15/18 12:03 General appearance: Present: cooperative, A&O X 3, pleasant, no acute distress. Absent: answers questions appropriately - Head Head exam: Present: atraumatic, normal inspection, normocephalic - Eye Eye exam: Present: normal appearance, conjuntiva pink, sclera anicteric - Neck Neck exam general surgery: Present: supple, trachea midline. Absent: lymphadenopathy - Respiratory Respiratory exam: Present: CTAB. Absent: accessory muscle use, decreased breath sounds, rales, respiratory distress, rhonchi, wheezes - Cardiovascular Cardiovascular exam: Present: RRR, +S1, +S2. Absent: diastolic murmur, gallop, rubs, systolic murmur - GI/Abdominal GI/Abdominal exam: Present: normal bowel sounds, soft. Absent: distended, hepatomegaly, tenderness - Extremities Exam Extremities exam: Present: normal capillary refill, normal inspection, warm, radial pulses palpable and symmetrical. Absent: calf tenderness, cyanotic, pedal edema, tenderness - Neurological Exam Neurological exam: Present: alert, oriented X3, no focal deficits. Absent: facial droop, speech deficit - Skin Skin exam: Present: dry, intact, warm. Absent: rash Internal Medicine: Result - Labs CBC & Chem 7: 02/15/18 11:37 02/12/18 05:38 Labs: Short CBC 02/15/18 Range/Units 11:37 WBC 8.7 (4.3-11.1) K/mcL Hgb 12.7 L D (12.9-16.9) g/dL Hct 37.2 L (37.5-50.1) % Plt Count 213 (140-400) K/mcL Neutrophils # 4.5 (1.6-8.9) K/mcL - VTE Documentation of Mechanical Device: Intermittent pneumatic compression device Consult Discharge Plan - Plan Referrals: NONE,PCP [Primary Care Provider] -
[2018-02-15] MEDS: risperiDONE 1 MG TABLET PO SCH (20:13)
[2018-02-16] MEDS: Acetaminophen 325 MG TABLET PO PRN ×3 (00:12→21:43)
[2018-02-16 05:25] LABS: Basophils % 0.5 %; Eosinophils # 0.3 K/mcL (0.0-0.6); Eosinophils % 5.2 %; Hematocrit 38.1 % (37.5-50.1); Hemoglobin 12.9 g/dL (12.9-16.9); Immature Granulocytes % 1.1 % (0-4); Lymphocytes # 2.4 K/mcL (0.6-4.6); Lymphocytes % 38.3 %; Mean Corpuscular HGB Conc 33.9 g/dL (31.6-35.5); Mean Corpuscular Hemoglobin 30.4 pg (28.0-33.3); Mean Corpuscular Volume 89.9 fL (83.0-100.0); Mean Platelet Volume 9.4 fL (9.4-12.4); Monocytes # 0.9 K/mcL (0.0-1.3); Monocytes % 13.8 %; Neutrophils # 2.6 K/mcL (1.6-8.9); Platelet Count 217 K/mcL (140-400); Red Blood Count 4.24 M/mcL (4.19-5.50); Red Cell Distribution Width 12.3 % (11.5-14.5); Segmented Neutrophils % 41.1 %
[2018-02-16] MEDS: *HR* Enoxaparin 40 MG/0.4 ML SYRINGE SQ SCH (05:56)
[2018-02-16] MEDS: risperiDONE 1 MG TABLET PO SCH ×2 (07:59→20:00)
[2018-02-16] MEDS: Metoprolol XL (24 HR) Succ 50 MG TAB.ER.24H PO SCH (07:59)
[2018-02-16] MEDS: Loratadine 10 MG TABLET PO SCH (07:59)
[2018-02-16] MEDS: Nicotine 21 MG PATCH.TD24 TD SCH (07:59)
[2018-02-16] MEDS: Fluticasone Propionate Nasal 50 MCG/SPRAY BOTTLE NS SCH (08:00)
[2018-02-16] MEDS: *HR* LORazepam 0.5 MG TABLET PO PRN ×2 (08:14→14:58)
[2018-02-16] MEDS: 0.9 % Sodium Chloride 1,000 ML IVC SCH (12:13)
--- NOTE | 2018-02-16 17:06 | Internal Med Progress Note ---
Date of Encounter: 02/16/18 Time of Encounter: 09:00 - Assessment and plan (1) Drug abuse Current Visit: Yes Status: Chronic Assessment and plan: Chronic. UDS positive for Amphetamines. (2) Suicidal ideation Current Visit: Yes Status: Acute Assessment and plan: Patient very flat, good eye contact. Ativan 0.5 mg po BID. Pt still remains drowsy in the mornings, is more alert in the afternoons. Pt will go to [facility] when medically cleared or will be placed in outside facility. Continue Celexa 20mg po daily and Risperdal 1mg po BID Sitter at bedside. (3) URI (upper respiratory infection) Current Visit: Yes Status: Acute Assessment and plan: Secondary to Influenza B. Qualifiers: URI type: unspecified URI Qualified Code(s): J06.9 - Acute upper respiratory infection, unspecified (4) DVT prophylaxis Current Visit: Yes Status: Acute Assessment and plan: Lovenox SQ daily. PT has been ambulatory. (5) Influenza B Current Visit: Yes Status: Acute Assessment and plan: Pt continues to reports URI symptoms and mild myalgias. Tamiflu 75mg po daily x 5 days. Day 5/5 Symptomatic treatment. Continue tylenol for pain for fever, flonase, mucinex, cough drops Pt will be medically cleared and ready for discharge to if blood cultures negative. (6) Tachycardia Current Visit: Yes Status: Resolved Assessment and plan: Resolved. Pt denies chest pain, palpitations or SOB. Pulse in the 80s now. Echo showed EF 65%, mild LVDD, no significant valvular dysfunction. Toprol increased to 50mg po daily, continue telemetry (7) Blood bacterial culture positive Current Visit: Yes Status: Acute Assessment and plan: Blood culture positive for Staphylococcus spescies, not S. aureus. Likely normal anahi since only one is positive. Will treat empirically. Pt has been tachycardic, afebrile, normotensive. Echo as above. Final culture and sensitivity not available yet. (8) Toxic encephalopathy Current Visit: Yes Status: Resolved - Time Spent With Patient Total time spent is greater than 50% in coordination of care (as documented) at patient's floor/unit and/or counseling patient: less than 15 minutes - Subjective Interval history: patient was seen and assessed at 0900 AM. Patient alert, awake, pleasant, answers questions appropriately. PT with flat affect, states that he is not feeling better, he still remains very drowsy. He denies nausea, vomiting, diarrhea, abdominal pain. He denies chest pain or shortness of breath. He denies headache. - Constitutional Vitals: Temp Pulse Resp BP Pulse Ox 98.4 F 83 17 108/66 97 02/16/18 12:14 02/16/18 12:14 02/16/18 12:14 02/16/18 12:14 02/16/18 12:14 General appearance: Present: cooperative, A&O X 3, pleasant, no acute distress. Absent: answers questions appropriately - Head Head exam: Present: atraumatic, normal inspection, normocephalic - Eye Eye exam: Present: normal appearance, conjuntiva pink, sclera anicteric - Neck Neck exam general surgery: Present: supple, trachea midline. Absent: lymphadenopathy - Respiratory Respiratory exam: Present: CTAB. Absent: accessory muscle use, rales, rhonchi, wheezes - Cardiovascular Cardiovascular exam: Present: RRR, +S1, +S2. Absent: diastolic murmur, gallop, rubs, systolic murmur, tachycardia - GI/Abdominal GI/Abdominal exam: Present: normal bowel sounds, soft. Absent: distended, hepatomegaly, tenderness - Extremities Exam Extremities exam: Present: normal capillary refill, normal inspection, warm, radial pulses palpable and symmetrical. Absent: calf tenderness, cyanotic, pedal edema, tenderness - Neurological Exam Neurological exam: Present: alert, oriented X3, no focal deficits. Absent: facial droop, speech deficit - Skin Skin exam: Present: dry, intact, normal color, warm. Absent: rash Internal Medicine: Result - Labs CBC & Chem 7: 02/16/18 04:59 02/12/18 05:38 Labs: Short CBC 02/16/18 Range/Units 04:59 WBC 6.4 (4.3-11.1) K/mcL Hgb 12.9 (12.9-16.9) g/dL Hct 38.1 (37.5-50.1) % Plt Count 217 (140-400) K/mcL Neutrophils # 2.6 (1.6-8.9) K/mcL - VTE Documentation of Mechanical Device: Graduated compression elastic hosiery Consult Discharge Plan - Plan Referrals: NONE,PCP [Primary Care Provider] -
[2018-02-16] MEDS ORDERED: *HR* LORazepam 2 MG/ML VIAL IVP ONE (20:28)
[2018-02-17] MEDS: 0.9 % Sodium Chloride 1,000 ML IVC SCH ×2 (00:22→00:46)
[2018-02-17] MEDS: *HR* Enoxaparin 40 MG/0.4 ML SYRINGE SQ SCH (05:55)
[2018-02-17] MEDS: Loratadine 10 MG TABLET PO SCH (08:44)
[2018-02-17] MEDS: risperiDONE 1 MG TABLET PO SCH ×2 (08:44→19:50)
[2018-02-17] MEDS: Acetaminophen 325 MG TABLET PO PRN ×2 (08:44→15:08)
[2018-02-17] MEDS: Fluticasone Propionate Nasal 50 MCG/SPRAY BOTTLE NS SCH (08:44)
[2018-02-17] MEDS: *HR* LORazepam 0.5 MG TABLET PO PRN ×2 (08:44→19:52)
[2018-02-17] MEDS: Metoprolol XL (24 HR) Succ 50 MG TAB.ER.24H PO SCH (08:45)
[2018-02-17] MEDS: Nicotine 21 MG PATCH.TD24 TD SCH (08:45)
[2018-02-17] MEDS ORDERED: Aminoglycoside Consult 1 EACH MC ONE (15:20)
--- NOTE | 2018-02-17 15:40 | Internal Med Progress Note ---
Date of Encounter: 02/17/18 Time of Encounter: 15:36 - Assessment and plan (1) Suicidal ideation Current Visit: Yes Status: Acute Assessment and plan: Evaluated by psychiatry who recommended acute inpatient psychiatric hospitalization once medically stable on 02/12/18 consultation. Currently denies SI/HI. Continue one-to-one sitter. Plan to discharge to 1 A on 02/18/18 (2) Toxic encephalopathy Current Visit: Yes Status: Resolved Assessment and plan: secondary to illicit/recreational drug use. Resolved. (3) Drug abuse Current Visit: Yes Status: Chronic Assessment and plan: Chronic. UDS positive for Amphetamines. (4) URI (upper respiratory infection) Current Visit: Yes Status: Acute Assessment and plan: Secondary to Influenza B. Qualifiers: URI type: unspecified URI Qualified Code(s): J06.9 - Acute upper respiratory infection, unspecified (5) Influenza B Current Visit: Yes Status: Acute Assessment and plan: resp PCR positive for influenza B; completed 5 day course of Tamiflu. (6) Tachycardia Current Visit: Yes Status: Resolved Assessment and plan: Resolved. Pt denies chest pain, palpitations or SOB. Pulse in the 80s now. Echo showed EF 65%, mild LVDD, no significant valvular dysfunction. Toprol increased to 50mg po daily, continue telemetry (7) Blood bacterial culture positive Current Visit: Yes Status: Acute Assessment and plan: 1 blood culture positive for staph epidermidis on 02/13/18; likely contaminant. Afebrile, no elevated to WBC. 2/2 blood cultures on 02/15/18 with no growth to date. IV vancomycin stopped; reculture if spike temps. (8) DVT prophylaxis Current Visit: Yes Status: Acute Assessment and plan: Lovenox - Time Spent With Patient Total time spent is greater than 50% in coordination of care (as documented) at patient's floor/unit and/or counseling patient: - Subjective Interval history: Seen and examined at bedside. Patient is new to me, information obtained from chart review and patient report. Says he feels a little shaky and off. Denies SI/HI. He is aware plan to transfer to one a likely tomorrow - Constitutional Vitals: Temp Pulse Resp BP Pulse Ox 98.7 F 104 14 110/69 97 02/17/18 11:19 02/17/18 11:19 02/17/18 11:19 02/17/18 11:19 02/17/18 11:19 General appearance: Present: cooperative, A&O X 3, pleasant, no acute distress. Absent: answers questions appropriately - Head Head exam: Present: atraumatic, normocephalic - Eye Eye exam: Present: PERRL, conjuntiva pink, sclera anicteric Pupils: Present: PERRL - Neck Neck exam general surgery: Present: supple, trachea midline. Absent: lymphadenopathy - Respiratory Respiratory exam: Present: CTAB. Absent: accessory muscle use, rales, rhonchi, wheezes - Cardiovascular Cardiovascular exam: Present: RRR, +S1, +S2. Absent: diastolic murmur, gallop, rubs, systolic murmur - GI/Abdominal GI/Abdominal exam: Present: normal bowel sounds, soft, no peritoneal signs. Absent: distended, tenderness - Extremities Exam Extremities exam: Present: warm, radial pulses palpable and symmetrical. Absent : calf tenderness, cyanotic, pedal edema - Neurological Exam Neurological exam: Present: CN II-XII intact, oriented X3, no focal deficits. Absent: pronater drift, facial droop, speech deficit - Skin Skin exam: Present: dry, intact Internal Medicine: Result - Labs CBC & Chem 7: 02/16/18 04:59 02/12/18 05:38 - VTE Documentation of Mechanical Device: Graduated compression elastic hosiery Consult Discharge Plan - Plan Referrals: NONE,PCP [Primary Care Provider] -
[2018-02-17] MEDS: Ibuprofen 600 MG TABLET PO PRN (19:50)
[2018-02-17] MEDS: traMADol 50 MG TABLET PO PRN (21:48)
[2018-02-18] MEDS: *HR* Enoxaparin 40 MG/0.4 ML SYRINGE SQ SCH (06:05)
[2018-02-18] MEDS: *HR* LORazepam 0.5 MG TABLET PO PRN (06:07)
[2018-02-18] MEDS: traMADol 50 MG TABLET PO PRN (06:08)
[2018-02-18] MEDS: Nicotine 21 MG PATCH.TD24 TD SCH (08:39)
[2018-02-18] MEDS: Loratadine 10 MG TABLET PO SCH (08:39)
[2018-02-18] MEDS: risperiDONE 1 MG TABLET PO SCH (08:39)
[2018-02-18] MEDS: Metoprolol XL (24 HR) Succ 50 MG TAB.ER.24H PO SCH (08:39)
[2018-02-18] MEDS: Fluticasone Propionate Nasal 50 MCG/SPRAY BOTTLE NS SCH (08:40)
[2018-02-18] MEDS: Acetaminophen 325 MG TABLET PO PRN (08:43)
[2018-02-18 11:42] VITALS: BP 98/62
--- NOTE | 2018-02-18 12:52 | Discharge Summary ---
Orders not resulted at time of discharge: Pending orders 02/13/18 22:45 Culture,Blood [BC] Stat 02/15/18 11:37 Culture,Blood,Additional [BC] Stat Date of Encounter: 02/18/18 Time of Encounter: 12:50 - Discharge Diagnosis (1) Suicidal ideation Priority: Primary Status: Acute Assessment and Plan: Evaluated by psychiatry who recommended acute inpatient psychiatric hospitalization once medically stable. Currently denies SI/HI. Discharge to [facility] (2) Toxic encephalopathy Priority: Primary Status: Resolved Assessment and Plan: secondary to illicit/recreational drug use. Resolved. (3) Drug abuse Priority: Primary Status: Chronic Assessment and Plan: Chronic. UDS positive for Amphetamines. Cessation advised (4) Influenza B Priority: Primary Status: Acute Assessment and Plan: resp PCR positive for influenza B; completed 5 day course of Tamiflu. (5) Tachycardia Priority: Primary Status: Resolved Assessment and Plan: mild tachycardia with HR up to 110; denied chest pain, palpitations or SOB. TTE with EF 65%, mild LVDD, no significant valvular dysfunction. Tachycardia possibly secondary to anxiety/acute illness. Wells score with low probability for pulmonary embolism. Resolved. Cont BB. (6) Blood bacterial culture positive Priority: Primary Status: Acute Assessment and Plan: 1/ blood culture positive for staph epidermidis on 02/13/18. Afebrile, no elevated to WBC. 2/2 blood cultures on 02/15/18 with no growth to date. Received 3 doses IV vancomycin. Has remained afebrile for over 24 hours without ATB; suspect positive blood culture contaminant. Hospital course: See assessment and plan for hospital course Discharge discussed with: patient (Seen and examined at bedside, no changes in exam to report. Remains depressed with poor eye contact. Has no complaints. He is agreeable to go to [facility] voluntarily.) - Time Spent with Patient Total time spent providing and/or coordinating discharge services: - Discharge Medications Home Medications: Metoprolol XL (24 HR) Succ [Toprol Xl] 25 mg PO DAILY tab.er.24h 02/18/18 [Rx] Allergies/Adverse Reactions: 3 Allergy/AdvReac Type Severity Reaction Status Date / Time Penicillins [PCN] Allergy Hives Verified 02/07/18 22:28 Date of admission: 02/07/18 22:13 Primary care physician: PCP NONE Consults: 02/08/18 08:58 Consult to Psychiatry [CONS] Routine Consulting Provider: Psychiatry Marianna Reason for Consult: Suicidal ideation, amphetamine OD Call Completed: No Discharging clinician: Hawa Flowers Anticipated date of discharge: 02/18/18 - Constitutional Vitals: Temp Pulse Resp BP Pulse Ox 97.7 F 78 18 98/62 95 02/18/18 11:39 02/18/18 11:39 02/18/18 11:39 02/18/18 11:39 02/18/18 11:39 General appearance: Present: cooperative, A&O X 3, pleasant, no acute distress. Absent: answers questions appropriately - Head Head exam: Present: atraumatic, normocephalic - Eye Eye exam: Present: PERRL, conjuntiva pink, sclera anicteric Pupils: Present: PERRL - Neck Neck exam general surgery: Present: supple, trachea midline. Absent: lymphadenopathy - Respiratory Respiratory exam: Present: CTAB. Absent: accessory muscle use, rales, rhonchi, wheezes - Cardiovascular Cardiovascular exam: Present: RRR, +S1, +S2. Absent: diastolic murmur, gallop, rubs, systolic murmur - GI/Abdominal GI/Abdominal exam: Present: normal bowel sounds, soft, no peritoneal signs. Absent: distended, tenderness - Extremities Exam Extremities exam: Present: warm, radial pulses palpable and symmetrical. Absent : calf tenderness, cyanotic, pedal edema - Neurological Exam Neurological exam: Present: CN II-XII intact, oriented X3, no focal deficits. Absent: pronater drift, facial droop, speech deficit - Psychiatric Psychiatric exam: Present: depressed, flat affect - Skin Skin exam: Present: dry, intact - Patient Status Disposition: Transfer Psychiatric Hosp Condition: Good Functional capacity at discharge: independent ambulation Overall status at discharge: patient is back to baseline - Discharge Instructions Instructions: Anxiety (DC), Suicide Prevention for Adults (DC), Depression (DC) Follow Up With: NONE,PCP [Primary Care Provider] - (Please follow-up with your primary care doctor within 7-10 days after discharge. If you do not have a primary care doctor please [phone] to find primary care physicians accepting new patients) - Diet and Activity Activity: increase activity as tolerated Diet: advance to your usual diet - VTE Documentation of Mechanical Device: Graduated compression elastic hosiery
--- NOTE | 2018-02-18 14:10 | Consult Note ---
Date of Encounter: 02/18/18 Time of Encounter: 13:00 Assessment & Recommendation (1) Suicidal ideation Current visit: Yes Status: Acute (2) Overdose Current visit: Yes Status: Acute Qualifiers: Encounter type: initial encounter Injury intent: undetermined intent Qualified Code(s): T50.904A - Poisoning by unspecified drugs, medicaments and biological substances, undetermined, initial encounter (3) Drug abuse Current visit: Yes Status: Chronic (4) Bipolar 1 disorder, depressed, severe Current visit: Yes Status: Acute History of Present Illness Patient: known to practice within the last 3 years Requesting Physician: Leslie Lester MD Reason for consult: suicidal ideation History of present illness: Mr. Osorio is a 37 year old male for follow up. Patient was seen today he remains very angry ,irritable, hopeless and does not know what he will do when he gets out, he can not sign for safety. AT present will need psychiatric inpatient for stabilization and treatment and safety. CC: Leslie Lester MD Past Med Surg Social Fam HX - Past Medical History Medical history: no medical history, other - Past Surgical History Surgical History: non-contributory - Social History Smoking Status: Current every day smoker Smokeless Tobacco Status: No Alcohol use: none Drug use: cocaine Medications & Allergies Metoprolol XL (24 HR) Succ [Toprol Xl] 25 mg PO DAILY tab.er.24h 02/18/18 [Rx] 3 Allergy/AdvReac Type Severity Reaction Status Date / Time Penicillins [PCN] Allergy Hives Verified 02/07/18 22:28 Review of Systems Psychiatric: Reports: depression, suicidal ideation Psychiatry Exam - Constitutional Vitals: Temp Pulse Resp BP Pulse Ox 97.7 F 78 18 98/62 95 02/18/18 11:39 02/18/18 11:39 02/18/18 11:39 02/18/18 11:39 02/18/18 11:39 General appearance: age & developmentally appropriate, well-groomed, well- nourished - Psychiatric Patient Orientation: Yes Person, Yes Time, Yes Place Level of alertness: Alert Behavior: anxious, withdrawn Psychomotor activity: Slowed Eye Contact: Minimal Contact Mood Description: Angry, Depressed, Irritable Affect description: congruent with mood Speech Volume: Soft/Quiet Speech pattern: coherent Language & Vocabulary: consistent with education Thought Process: Slowed Thinking Thought Content: Yes Suicidal ideation Perceptual Disturbances: Yes Auditory hallucinations Attention Span Ability: Unable to Sustain Attention Memory Description: Grossly Intact Patient Reliability: Reliable Historian Fund of knowledge: Yes abstraction ability, Yes aware of current events Intelligence Estimate: Average Judgment: Limited Insight: Minimal Results - Labs Labs: Laboratory Last Values WBC 6.4 K/mcL (4.3-11.1) 02/16/18 04:59 RBC 4.24 M/mcL (4.19-5.50) 02/16/18 04:59 Hgb 12.9 g/dL (12.9-16.9) 02/16/18 04:59 Hct 38.1 % (37.5-50.1) 02/16/18 04:59 MCV 89.9 fL (83.0-100.0) 02/16/18 04:59 MCH 30.4 pg (28.0-33.3) 02/16/18 04:59 MCHC 33.9 g/dL (31.6-35.5) 02/16/18 04:59 RDW 12.3 % (11.5-14.5) 02/16/18 04:59 Plt Count 217 K/mcL (140-400) 02/16/18 04:59 MPV 9.4 fL (9.4-12.4) 02/16/18 04:59 Immature Gran % 1.1 % (0-4) 02/16/18 04:59 Seg Neutrophils % 41.1 % 02/16/18 04:59 Lymphocytes % 38.3 % 02/16/18 04:59 Monocytes % 13.8 % 02/16/18 04:59 Eosinophils % 5.2 % 02/16/18 04:59 Basophils % 0.5 % 02/16/18 04:59 Neutrophils # 2.6 K/mcL (1.6-8.9) 02/16/18 04:59 Lymphocytes # 2.4 K/mcL (0.6-4.6) 02/16/18 04:59 Monocytes # 0.9 K/mcL (0.0-1.3) 02/16/18 04:59 Eosinophils # 0.3 K/mcL (0.0-0.6) 02/16/18 04:59 Basophils # 0.0 K/mcL (0.0-0.2) 02/16/18 04:59 Immature Plt Fraction 2.1 % (1.1-6.1) 02/15/18 11:37 Sodium 141 mEq/L (136-145) 02/12/18 05:38 Potassium 3.9 mEq/L (3.5-5.1) 02/12/18 05:38 Chloride 108 mEq/L (98-107) H 02/12/18 05:38 Carbon Dioxide 28 mEq/L (23-29) 02/12/18 05:38 BUN 5 mg/dL (6-20) L 02/12/18 05:38 Creatinine 0.85 mg/dL (0.70-1.30) 02/12/18 05:38 Est GFR ( Amer) > 60 (> 60) 02/12/18 05:38 Est GFR (Non-Af Amer) > 60 (> 60) 02/12/18 05:38 BUN/Creatinine Ratio 6 (6-26) 02/12/18 05:38 Glucose 89 mg/dL (70-105) 02/12/18 05:38 POC Glucose 104 mg/dL (70-99) H 02/07/18 22:55 Calculated Osmolality 289 (280-300) 02/12/18 05:38 Lactic Acid 1.4 mmol/L (0.5-2.2) 02/07/18 19:57 Calcium 8.9 mg/dL (8.6-10.3) 02/12/18 05:38 Magnesium 2.1 mg/dL (1.6-2.6) 02/08/18 09:23 Total Bilirubin 1.2 mg/dL (0.3-1.0) H 02/08/18 09:23 Direct Bilirubin 0.3 mg/dL (0.0-0.2) H 02/08/18 09:23 Indirect Bilirubin 0.9 mg/dL (0.0-1.2) 02/08/18 09:23 AST 123 Units/L (13-39) H 02/08/18 09:23 ALT 70 Units/L (7-52) H 02/08/18 09:23 Alkaline Phosphatase 55 Units/L (34-104) 02/08/18 09:23 Troponin I < 0.03 ng/mL (< 0.04) 04/23/18 11:35 Serum Total Protein 6.5 g/dL (6.4-8.9) 02/08/18 09:23 Albumin 3.9 g/dL (3.5-5.7) 02/08/18 09:23 Globulin 2.6 g/dL (2.4-3.5) 02/08/18 09:23 Albumin/Globulin Ratio 1.5 (1.1-2.2) 02/08/18 09:23 Urine Color Yellow (Yellow) 02/07/18 19:52 Urine Clarity Clear (Clear) 02/07/18 19:52 Urine pH 7.5 pH Units (5.0-8.0) 02/07/18 19:52 Ur Specific [place] 1.014 (1.010-1.025) 02/07/18 19:52 Urine Protein Negative mg/dL (Neg-Trace) 02/07/18 19:52 Urine Glucose (UA) Normal mg/dL (Normal) 02/07/18 19:52 Urine Ketones Negative mg/dL (Negative) 02/07/18 19:52 Urine Blood Negative (Negative) 02/07/18 19:52 Urine Nitrite Negative (Negative) 02/07/18 19:52 Urine Bilirubin Negative (Negative) 02/07/18 19:52 Urine Urobilinogen Normal mg/dL (Normal) 02/07/18 19:52 Ur Leukocyte Esterase Negative (Negative) 02/07/18 19:52 Vancomycin Trough 10 mcg/mL (5-10) 02/16/18 22:39 Salicylates < 2.5 mg/dL (15.0-30.0) L 02/07/18 19:57 Urine Opiates Screen Negative ng/mL (Kzjwqy=447) 02/07/18 19:52 Acetaminophen < 10 mcg/mL (10-20) L 02/07/18 19:57 Ur Barbiturates Screen Negative ng/mL (Sekgvt=646) 02/07/18 19:52 Ur Phencyclidine Scrn Negative ng/mL (Cutoff=25) 02/07/18 19:52 Ur Amphetamines Screen Positive ng/mL (Dwvxut=2668) H 02/07/18 19:52 U Benzodiazepines Scrn Negative ng/mL (Yvkaix=741) 02/07/18 19:52 Urine Cocaine Screen Negative ng/mL (Cutoff= 300) 02/07/18 19:52 U Marijuana (THC) Screen Negative ng/mL (Cutoff = 50) 02/07/18 19:52 Ethyl Alcohol < 10 mg/dL (Less than 10) 02/07/18 19:57 A. baumannii (PCR) Not Detected (Not Detect) 02/13/18 22:45 Chlamy pneumoniae PCR Not Detected (Not Detect) 02/11/18 18:15 Adenovirus (PCR) Not Detected (Not Detect) 02/11/18 18:15 B. pertussis DNA (PCR) Not Detected (Not Detect) 02/11/18 18:15 B.parapertussis DNA PCR Not Detected (Not Detect) 02/11/18 18:15 Vera albicans (PCR) Not Detected (Not Detect) 02/13/18 22:45 C. glabrata (PCR) Not Detected (Not Detect) 02/13/18 22:45 C. krusei (PCR) Not Detected (Not Detect) 02/13/18 22:45 C. parapsilosis (PCR) Not Detected (Not Detect) 02/13/18 22:45 C. tropicalis (PCR) Not Detected (Not Detect) 02/13/18 22:45 Coronavirus OC43 (PCR) Not Detected (Not Detect) 02/11/18 18:15 Coronavirus HKU1 (PCR) Not Detected (Not Detect) 02/11/18 18:15 Coronavirus 229E (PCR) Not Detected (Not Detect) 02/11/18 18:15 Coronavirus NL63 (PCR) Not Detected (Not Detect) 02/11/18 18:15 Enterobacteriac sp PCR Not Detected (Not Detect) 02/13/18 22:45 E. cloacae complex PCR Not Detected (Not Detect) 02/13/18 22:45 Enterococcus sp PCR Not Detected (Not Detect) 02/13/18 22:45 E. coli (PCR) Not Detected (Not Detect) 02/13/18 22:45 H. influenzae (PCR) Not Detected (Not Detect) 02/13/18 22:45 Hepatitis A IgM Ab Nonreactive (Nonreactive) 02/07/18 23:11 Hep Bs Antigen Nonreactive (Nonreactive) 02/07/18 23:11 Hep B Core IgM Ab Nonreactive (Nonreactive) 02/07/18 23:11 Hepatitis C Ab Screen Reactive (Nonreactive) H 02/07/18 23:11 Human Metapneumovir PCR Not Detected (Not Detect) 02/11/18 18:15 Influenza A (H1) PCR Not Detected (Not Detect) 02/11/18 18:15 Influ A (H1N1/09) PCR Not Detected (Not Detect) 02/11/18 18:15 Influenza A (H3) PCR Not Detected (Not Detect) 02/11/18 18:15 Influenza A Untype (PCR) Not Detected (Not Detect) 02/11/18 18:15 Influenza Type B (PCR) DETECTED (Not Detect) A 02/11/18 18:15 Klebsiella oxytoca PCR Not Detected (Not Detect) 02/13/18 22:45 Klebsiella pneumoniae Not Detected (Not Detect) 02/13/18 22:45 List. monocytogenes PCR Not Detected (Not Detect) 02/13/18 22:45 M.pneumoniae DNA (PCR) Not Detected (Not Detect) 02/11/18 18:15 N. meningitidis (PCR) Not Detected (Not Detect) 02/13/18 22:45 Parainfluenza 1 (PCR) Not Detected (Not Detect) 02/11/18 18:15 Parainfluenza 2 (PCR) Not Detected (Not Detect) 02/11/18 18:15 Parainfluenza 3 (PCR) Not Detected (Not Detect) 02/11/18 18:15 Parainfluenza 4 (PCR) Not Detected (Not Detect) 02/11/18 18:15 Proteus species (PCR) Not Detected (Not Detect) 02/13/18 22:45 RSV (PCR) Not Detected (Not Detect) 02/11/18 18:15 Entero/Rhino (PCR) Not Detected (Not Detect) 02/11/18 18:15 Serratia marcescens PCR Not Detected (Not Detect) 02/13/18 22:45 Staphylococcus sp PCR DETECTED (Not Detect) A 02/13/18 22:45 Staph aureus (PCR) Not Detected (Not Detect) 02/13/18 22:45 mecA-Methicil Res Gene Not Detected (Not Detect) 02/13/18 22:45 Streptococcus sp PCR Not Detected (Not Detect) 02/13/18 22:45 Group A Strep DNA Not Detected (Not Detect) 02/13/18 22:45 Group B Strep (PCR) Not Detected (Not Detect) 02/13/18 22:45 Strep pneumoniae (PCR) Not Detected (Not Detect) 02/13/18 22:45 P. aeruginosa (PCR) Not Detected (Not Detect) 02/13/18 22:45 Obie/B-Vanco Res Genes Not Detected (Not Detect) 02/13/18 22:45 KPC (blaKPC) Detect PCR Not Detected (Not Detect) 02/13/18 22:45 Consult Discharge Plan - Plan Instructions: Depression (DC), Suicide Prevention for Adults (DC), Anxiety (DC) Referrals: NONE,PCP [Primary Care Provider] - (Please follow-up with your primary care doctor within 7-10 days after discharge. If you do not have a primary care doctor please [phone] to find primary care physicians accepting new patients)
== END 2018-02-18 15:21 | DRG 817 ==
LOC: EMEROO 18:58 → SUATTDRO 22:13 → ICNU 22:13 → 3BNU 02-08 10:51
PROVIDERS: ADMIT Internal Medicine; ATTEND Internal Medicine

== ENCOUNTER 2018-02-18 15:11 | Observation (INO) ==
[2018-02-18] MEDS ORDERED: MOM Conc 10 ML UD.LIQ PO PRN (15:23)
[2018-02-18] MEDS ORDERED: Mag Hydrox/Al Hydrox/Simeth 30 ML UDC PO PRN (15:23)
[2018-02-18] MEDS ORDERED: Haloperidol Lactate 5 MG/ML VIAL IM PRN (15:23)
[2018-02-18] MEDS ORDERED: hydrOXYzine pamoate 25 MG CAPSULE PO PRN (15:23)
[2018-02-18] MEDS ORDERED: *HR* LORazepam 2 MG/ML VIAL IM PRN (15:23)
[2018-02-18] MEDS ORDERED: Acetaminophen 325 MG TABLET PO PRN (15:23)
[2018-02-18] MEDS ORDERED: *HR* LORazepam 1 MG TABLET PO PRN (15:23)
[2018-02-18] MEDS ORDERED: traZODone 50 MG TABLET PO PRN (15:23)
[2018-02-19 08:54] VITALS: BP 111/72
--- NOTE | 2018-02-19 14:08 | Psychiatry History & Physical ---
Date of Encounter: 02/19/18 Time of Encounter: 13:45 History of Present Illness Medicare Admission Attestation: For traditional Medicare patients the provided hospital inpatient services are reasonable and necessary and in the case of services not specified as inpatient -only under 42 CFR 419.22 (n), that they are appropriately provided as inpatient services in accordance 42 CFR 412.3. For Critical Access Hospital the patient may reasonably be expected to be discharged or transferred to a hospital within 96 hours after admission to the Critical Access Hospital. Admitted From: Intrahospital Transfer Plans for Post Hospital Care: Transfer Other History of Present Illness: Mr. Osorio is a 37 year old male was transfered from medical floor for suicidal ideation and anger and worsening of depression. Patient was consulted as he OD on Amphetamines and having suicidal and homicidal ideation. also he stated on medical floor he has been dx with bipolar and has h/o suicidal attempts in past. Today he is denies any past psychiatric history and has not seen psychiatrist , he denies any previous suicidal ideation or suicidal attempts , no homicidal thoughts or attempts. [facility] and was sent to [facility] , he OD on 02/07 on amphetamine , does not know where he got , states somebody else had. Today he is preoccupied with why he is not getting his pain medicine and his benzo, educated him he was on ultram and ativan as needed on medical floor and he does not need them here. He states that he has back pain and need something for back pain. His moods are described as alright , no suicidal ideation and no homicidal ideation , denies any psychosis. He is in his room mostly , eating 100 % and sleep not so good as he did not had his ativan. Patient at present is not suicidal/homicidal, denies any psych history and when i asked him why he said that he said i never told you and i do not remember. Past Psych h/o denies any treatment. SUbstance use : methamphetamines, pain medication , denies other. Medical He was dx with flu on medical floor and then staph infection he is medically stable at present. A/P he denies any depressives/s, no psychosis, no si, no hi he barb be discharged and no psych medications needed at present. Past Med Surg Social Fam HX - Past Medical History Medical history: no medical history, other - Past Psychiatric History Psychiatric history: Reports: no psych history Family psychiatric history: No Family History of Suicide: None - Past Surgical History Surgical History: non-contributory - Social History Smoking Status: Current every day smoker Smokeless Tobacco Status: No Alcohol use: none Drug use: cocaine - Family History Mother History Unknown: Yes Medications & Allergies Metoprolol XL (24 HR) Succ [Toprol Xl] 25 mg PO DAILY tab.er.24h 02/18/18 [Rx] 3 Allergy/AdvReac Type Severity Reaction Status Date / Time Penicillins [PCN] Allergy Hives Verified 02/07/18 22:28 Review of Systems Psychiatric: Reports: other Exam - HEENT Head exam IM: Present: atraumatic Eye exam IM: Present: EOMI, normal appearance, PERRL ENT exam IM: Present: normal exam - Neurological Neurological exam: Present: CN II-XII intact - Respiratory Respiratory exam IM: Present: CTAB - GI/Abdominal GI/Abdominal exam IM: Present: normal bowel sounds, soft. Absent: tenderness - Extremities Extremities exam IM: Present: full ROM - Skin Skin exam IM: Present: warm - Constitutional Vitals: Temp Pulse Resp BP 98.4 F 81 16 111/72 02/19/18 08:53 02/19/18 08:53 02/19/18 08:53 02/19/18 08:53 General appearance: age & developmentally appropriate, well-groomed, well- nourished - Musculoskeletal Gait: normal Station: relaxed Strength & Tone: normal for patient - Psychiatric Patient Orientation: Yes Person, Yes Time, Yes Place Level of alertness: Alert Behavior: calm, cooperative Psychomotor activity: Normal Eye Contact: Maintains Eye Contact Mood Description: Euthymic/stable, Anxious Affect description: congruent with mood, full range Speech Volume: Normal Speech pattern: normal rate, normal rhythm, normal tone, fluent, spontaneous Language & Vocabulary: consistent with education Thought Process: Linear, Goal Oriented Thought Content: No Suicidal ideation, No Homicidal ideation, No Overt delusions Perceptual Disturbances: No Auditory hallucinations, No Visual hallucinations Attention Span Ability: Capable of Focused Attention Memory Description: Grossly Intact Patient Reliability: Reliable Historian Fund of knowledge: Yes abstraction ability, Yes average, Yes aware of current events Intelligence Estimate: Average Judgment: Fair Insight: Partial Assessment and Plan (1) Drug abuse Current visit: No Status: Chronic Plan: Admit inpatient for safety and stabilization, Close observation, Suicide Precautions per unit protocol, Encourage participation in unit milieu, Group Therapy, Monitor sleep, Monitor appetite, Family/Supportive other meeting Risks, benefits, side effects, alternatives discussed w/pt: Yes Patient agreeable to treatment: Yes Plans for Post Hospital Care: Transfer Other (2) Suicidal ideation Current visit: No Status: Resolved Plan: Admit inpatient for safety and stabilization, Close observation, Suicide Precautions per unit protocol, Encourage participation in unit milieu, Group Therapy, Monitor appetite, Family/Supportive other meeting Risks, benefits, side effects, alternatives discussed w/pt: Yes Patient agreeable to treatment : Yes Plans for Post Hospital Care: Transfer Other
--- NOTE | 2018-02-19 14:36 | Discharge Summary ---
Date of Encounter: 02/19/18 Time of Encounter: 14:00 Diagnosis - Discharge Diagnosis (1) Drug abuse Status: Chronic (2) Suicidal ideation Status: Resolved Medications - Discharge Medications Metoprolol XL (24 HR) Succ [Toprol Xl] 25 mg PO DAILY tab.er.24h 02/18/18 [Rx] 3 Allergy/AdvReac Type Severity Reaction Status Date / Time Penicillins [PCN] Allergy Hives Verified 02/07/18 22:28 Provider Date of admission: 02/18/18 15:11 Primary care physician: PCP NONE Psychiatry Exam - Constitutional Vitals: Temp Pulse Resp BP 98.4 F 81 16 111/72 02/19/18 08:53 02/19/18 08:53 02/19/18 08:53 02/19/18 08:53 General appearance: age & developmentally appropriate, well-groomed, well- nourished - Musculoskeletal Gait: normal Station: relaxed Strength & Tone: normal for patient - Psychiatric Patient Orientation: Yes Person, Yes Time, Yes Place Level of alertness: Alert Behavior: calm, cooperative Psychomotor activity: Normal Eye Contact: Maintains Eye Contact Mood Description: Euthymic/stable Affect description: congruent with mood, full range Speech Volume: Normal Speech pattern: normal rate, normal rhythm, normal tone, fluent, spontaneous Language & Vocabulary: consistent with education Thought Process: Linear, Goal Oriented Thought Content: No Suicidal ideation, No Homicidal ideation, No Overt delusions Perceptual Disturbances: Yes Reacting to internal stimuli Attention Span Ability: Capable of Focused Attention Memory Description: Grossly Intact Patient Reliability: Not Reliable Historian Fund of knowledge: Yes average Intelligence Estimate: Average Judgment: Fair Insight: None Hospital Course Hospital course: Mr. Osorio is a 37 year old male who was admitted from medical floor where he initially was admitted after OD on methamphetamine. then he developed flu and staph infection which was treated and resolved. he was seen on floor and he admit to suicide ideation and psychosis, he stated he has h/o of suicide attempts in past , he has lot of anger being in [facility] and does not think he should be there. He was rec to start celexa and risperdal which apparently was not given and then patient was transfered to inpatient psych unit as he was high risk when i did his evaluation today he denies any psych s/s and said i never told you i have past suicidal thoughts or attempts or having hallucinations , if i did i do not remember, i states that was the reason you had sitter with you . he said i do not know. He was focused on getting Ativan and ultram as he gets them from street and needs to continue, i educated him and declined and gave him tyelenolol, He has no psych s/s or history , he wants to be here to be away form alf house. he does not want to pRTICIPATE IN ANY ACTIVITIES and wants to be in his room. WILL discharge him to [facility]. not in danger to self/others. Time spent discussing smoking cessation with patient: 3 to 10 minutes Does patient wish to continue nicotine replacement upon disc: No (patient showed no interest) - Time Spent with Patient Total time spent providing and/or coordinating discharge services: Less than 30 minutes Assessment and Plan - Patient/Caregiver Discharge Instructions Activity: resume usual activities as tolerated Diet: regular diet - Follow up Plan Follow up with: Elda Soriano [Outside] - 03/03/18 2:30 pm (The above appointment is with [facility]. When you come to your first appointment, you will be completing paperwork, meeting with a counselor, and developing a treatment plan. You will receive follow- up appointments for on-going services , which could include community support, mental health and substance abuse counseling, groups/partial hospitalization programming and medication assisted treatment. Please note, you will receive a new patient packet in the mail. Please complete that to the best of your ability and bring it with you to your first appointment. You will also need to bring the following to your first appointment as well: 1) proof of household income (two consecutive pay stubs, social security award letter, bank statement, statement letter from [facility], child support statement, IRS 1040 or W2 form, or a statement from the person who financially supports you stating they help provide for your basic needs), 2 ) proof of residency (drivers license, a piece of mail showing your address, a statement from person you live with verifying you live at their address), 3) your social security card, 4) photo ID, 5) your insurance card (if you have commercial insurance you must call to obtain a prior authorization number before you arrive to your first appointment) and 6) if you do not have insurance but have applied for Medicaid, please bring verification you have applied. The above appointment(s) reflects first availability. You may contact the office regularly to check for cancellations that may allow you to be seen sooner.) Blaire Hunt [Advanced Practice Nurse] - 03/06/18 9:30 am (The above appointment is with Blaire Hunt CNP, at [facility]. This appointment is to establish you with a primary care provider. Your needs for medication and/or Vivitrol will be assessed and treated as indicated as well. Please arrive 15 minutes early to complete paperwork. Please bring your insurance card, photo ID and list of current medications to your first appointment. The above appointment(s) reflects first availability. You may contact the office regularly to check for cancellations that may allow you to be seen sooner.) Functional capacity at discharge: independent ambulation Overall status at discharge: patient is back to baseline Disposition: Transfer Other Quality - Multiple Antipsychotics Patient discharged on 2 or more antipsychotic medications: No Procedures - Procedures Procedures: Crisis Stabilization
[2018-02-19] MEDS ORDERED: risperiDONE 0.25 MG TABLET PO SCH (21:00)
[2018-02-19] MEDS ORDERED: Divalproex (12 HR) 250 MG TABLET PO SCH (21:00)
== END 2018-02-19 16:35 | disposition other institution (70) | DRG 776 ==
LOC: 1ANU 15:11 → INTOOBSV 15:11
PROVIDERS: ADMIT Psychiatry & Neurology Psychiatry; ATTEND Psychiatry & Neurology Psychiatry